=== PATIENT | male | born 1970 | race Caucasian/White ===

== ENCOUNTER → 2016-12-28 | Outpatient (CLI) | payer MEDICAID ==
[2016-01-08 13:35] VITALS: BP 166/81
[~2016-12-28] MED LIST: ALBU1.25 NEB; ASPI81TA2 PO; BUSP30TA PO; CLON0.2T PO; CLON1TAB3 PO; CYCL5TAB PO; LISI-334 PO; SERT100T PO; SPIR50TA2 PO; TRAM50TA PO; VERA240C2 PO
--- NOTE | 2016-12-28 12:20 | RAD ---
Chest, 2 views, 12/28/2016: History: Increasing shortness of breath Comparison is made to a study from 12/02/2010. The heart size and pulmonary vascularity are normal. There is a calcified granuloma in the left apex. No acute infiltrates are seen. There is no evidence of pleural fluid. Mild spurring is present in the spine. IMPRESSION: No acute cardiopulmonary abnormality is detected.
== END | disposition home or self-care (01) ==
LOC: RAD 11:17
PROVIDERS: ATTEND Internal Medicine Pulmonary Disease
DX: R06.02 Shortness of breath (principal)
CPT/HCPCS: 71020

== ENCOUNTER 2018-01-21 17:51 | Observation (INO) | payer OTHER, MEDICAID ==
[2018-01-21] MEDS: IPRATRPIUM/ALBUTEROL 0.5/2.5MG 3 ML NEBU. NEB (18:28)
[2018-01-21 18:34] LABS: ADD MAN DIFF? NO
[2018-01-21] MEDS: methylPREDNISolone SOD SUCC PF 125 MG/2 ML VIAL. IV (18:34)
[2018-01-21 18:40] LABS: BASO # 0.1 x10^3/uL (0.0-0.2); BASO % 1 % (0-3); EOS # 0.6 x10^3/uL (0.0-0.7); EOS % 6 % (0-3); HEMOGLOBIN 12.9 g/dL (13.0-17.5); LYMPH # 1.8 x10^3/uL (1.0-4.8); LYMPH % 19 % (24-48); MEAN CORPUSCULAR HEMOGLOBIN 28 pg (25-35); MEAN CORPUSCULAR HGB CONC 33 g/dL (31-37); MEAN CORPUSCULAR VOLUME 83 fL (79-100); MONO # 0.7 x10^3/uL (0.0-1.1); MONO % 7 % (0-9); NEUT # 6.4 x10^3uL (1.8-7.7); NEUT % 67 % (31-73); PLATELET COUNT 291 x10^3/uL (140-400); RED BLOOD COUNT 4.69 x10^6/uL (4.30-5.70); RED CELL DISTRIBUTION WIDTH 14.8 % (11.5-14.5); WHITE BLOOD COUNT 9.6 x10^3/uL (4.0-11.0)
[2018-01-21 18:40] LABS: TROPONIN BY ISTAT 0.01 ng/ml (<0.08)
[2018-01-21 18:49] LABS: PROTHROMBIN TIME PATIENT 12.7 SEC (11.7-14.0)
[2018-01-21 18:56] LABS: ANION GAP 8 (6-14); BLOOD UREA NITROGEN 19 mg/dL (8-26); BUN/CREATININE RATIO 19 (6-20); CALCIUM 9.3 mg/dL (8.5-10.1); CARBON DIOXIDE 27 mmol/L (21-32); CHLORIDE 103 mmol/L (98-107); GFR 80.8; GLUCOSE 103 mg/dL (70-99); POTASSIUM 4.2 mmol/L (3.5-5.1); SODIUM 138 mmol/L (136-145)
[2018-01-21 19:00] LABS: D-DIMER 0.41 ug/mlFEU (0.00-0.50)
[2018-01-21 19:03] LABS: ALBUMIN 3.6 g/dL (3.4-5.0); ALBUMIN/GLOBULIN RATIO 0.9 (1.0-1.7); ALK PHOS 82 U/L (46-116); ALT (SGPT) 32 U/L (16-63); AST (SGOT) 10 U/L (15-37); TOTAL BILIRUBIN 0.2 mg/dL (0.2-1.0); TOTAL PROTEIN 7.6 g/dL (6.4-8.2)
[2018-01-21 19:06] LABS: NT-PRO BNP 26 pg/mL (0-124)
[2018-01-21] MEDS ORDERED: NITROGLYCERIN SUBLINGUAL 0.4 MG BOTTLE OF 25. SL (20:30)
[2018-01-21] MEDS ORDERED: MORPHINE SULFATE 4 MG/ML DISP.SYRIN. IV (20:30)
[2018-01-21] MEDS ORDERED: ONDANSETRON PF 4 MG/2 ML VIAL. IV (20:30)
[2018-01-21] MEDS ORDERED: CETIRIZINE HCL 10 MG TABLET. PO (22:30)
[2018-01-21] MEDS: diphenhydrAMINE HCL 25 MG CAPSULE PO (23:23)
[2018-01-21] MEDS: busPIRone 10 MG TABLET. PO (23:24)
[2018-01-21] MEDS: VERAPAMIL 40 MG TABLET. PO (23:24)
[2018-01-21] MEDS: CYCLOBENZAPRINE 10 MG TABLET. PO (23:24)
[2018-01-21] MEDS: MONTELUKAST SODIUM 10 MG TABLET. PO (23:24)
[2018-01-21] MEDS: GABAPENTIN 400 MG CAPSULE. PO (23:25)
[2018-01-21] MEDS: clonazePAM 1 MG TABLET PO (23:25)
[2018-01-21] MEDS: CARVEDILOL 6.25 MG TABLET. PO (23:25)
[2018-01-21] MEDS: tiZANidine 4 MG TABLET. PO (23:25)
[2018-01-21] MEDS: IBUPROFEN 800 MG TABLET. PO (23:26)
[2018-01-21] MEDS: traMADol 50 MG TABLET PO (23:27)
[2018-01-21] MEDS ORDERED: CYCLOBENZAPRINE 10 MG TABLET. (23:30)
[2018-01-21] MEDS ORDERED: VERAPAMIL 40 MG TABLET. (23:30)
[2018-01-21] MEDS: ALBUTEROL SULFATE 2.5 MG/3 ML NEBU. NEB (23:44)
[2018-01-22 00:11] LABS: TROPONINI < 0.017 ng/mL (0.000-0.055)
[2018-01-22 03:34] LABS: BASO % 0 % (0-3); EOS % 0 % (0-3); HEMATOCRIT 39.7 % (39.0-53.0); HEMOGLOBIN 12.9 g/dL (13.0-17.5); LYMPH # 0.6 x10^3/uL (1.0-4.8); LYMPH % 7 % (24-48); MEAN CORPUSCULAR HEMOGLOBIN 27 pg (25-35); MEAN CORPUSCULAR HGB CONC 33 g/dL (31-37); MEAN CORPUSCULAR VOLUME 84 fL (79-100); MONO # 0.1 x10^3/uL (0.0-1.1); MONO % 1 % (0-9); NEUT # 7.4 x10^3uL (1.8-7.7); NEUT % 92 % (31-73); PLATELET COUNT 267 x10^3/uL (140-400); RED BLOOD COUNT 4.76 x10^6/uL (4.30-5.70); RED CELL DISTRIBUTION WIDTH 14.4 % (11.5-14.5); WHITE BLOOD COUNT 8.1 x10^3/uL (4.0-11.0)
[2018-01-22 03:39] LABS: ADD MAN DIFF? YES
[2018-01-22 03:58] LABS: ALBUMIN 3.5 g/dL (3.4-5.0); ALBUMIN/GLOBULIN RATIO 0.9 (1.0-1.7); ALK PHOS 86 U/L (46-116); ALT (SGPT) 29 U/L (16-63); ANION GAP 8 (6-14); AST (SGOT) 10 U/L (15-37); BLOOD UREA NITROGEN 21 mg/dL (8-26); BUN/CREATININE RATIO 18 (6-20); CALCIUM 9.4 mg/dL (8.5-10.1); CARBON DIOXIDE 25 mmol/L (21-32); CHLORIDE 103 mmol/L (98-107); CREATININE 1.2 mg/dL (0.7-1.3); GFR 65.5; GLUCOSE 148 mg/dL (70-99); POTASSIUM 4.6 mmol/L (3.5-5.1); SODIUM 136 mmol/L (136-145); TOTAL BILIRUBIN 0.3 mg/dL (0.2-1.0); TOTAL PROTEIN 7.6 g/dL (6.4-8.2)
[2018-01-22 04:02] LABS: TROPONINI < 0.017 ng/mL (0.000-0.055)
[2018-01-22 04:27] LABS: % BANDS 2 % (0-9); % LYMPHS 6 % (24-48); % SEGS 92 % (35-66); ANISOCYTOSIS SLIGHT; OVALOCYTES OCC; PLT ESTIMATE ADEQUATE (ADEQUATE)
[2018-01-22] MEDS: ALBUTEROL SULFATE 2.5 MG/3 ML NEBU. NEB ×4 (07:24→19:35)
[2018-01-22] MEDS: BUDESONIDE 0.5 MG/2 ML NEBU. NEB ×2 (07:24→19:35)
[2018-01-22] MEDS: DICLOFENAC SODIUM 1% TOPICAL GEL 100GM TUBE. TP ×4 (09:00→21:00)
[2018-01-22] MEDS ORDERED: NON FORMULARY ITEM (Tiotropium Bromide (Spiriva) 1 CAP) IH (09:00)
[2018-01-22] MEDS ORDERED: NON FORMULARY ITEM (Budesonide/Formoterol Fumarate (Symbicort 160-4.5 Mcg Inhaler) 2 PUFF) IH (09:00)
[2018-01-22] MEDS: traMADol 50 MG TABLET PO ×3 (10:04→21:17)
[2018-01-22] MEDS: clonazePAM 1 MG TABLET PO ×3 (10:05→21:16)
[2018-01-22] MEDS ORDERED: REGADENOSON 0.4 MG/5 ML DISP.SYRIN. IV (11:30)
[2018-01-22 11:45] LABS: CHOLESTEROL 124 mg/dL (0-200); HDLC 41 mg/dL (40-60); LDLC 75 mg/dL (0-100); NON-HDL CHOLESTEROL 83 mg/dL (0-129); TRIGLYCERIDES 38 mg/dL (0-150); VLDLC 8 mg/dL (0-40)
[2018-01-22 11:52] LABS: THYROID STIM HORMONE (TSH) 0.712 uIU/mL (0.358-3.74)
[2018-01-22] MEDS: SERTRALINE 50 MG TABLET. PO (12:39)
[2018-01-22] MEDS: cloNIDine HCL 0.2 MG TABLET PO ×2 (12:39→21:00)
[2018-01-22] MEDS: busPIRone 10 MG TABLET. PO ×3 (12:40→21:17)
[2018-01-22] MEDS: LISINOPRIL 20 MG TABLET PO (12:41)
[2018-01-22] MEDS: GABAPENTIN 400 MG CAPSULE. PO ×3 (12:42→21:16)
[2018-01-22] MEDS: CARVEDILOL 6.25 MG TABLET. PO ×2 (12:42→17:04)
[2018-01-22] MEDS: ATORVASTATIN CALCIUM 10 MG TABLET. PO (12:42)
[2018-01-22] MEDS: SPIRONOLACTONE 25 MG TABLET PO (12:43)
[2018-01-22] MEDS: CYCLOBENZAPRINE 10 MG TABLET. PO ×3 (12:44→21:16)
[2018-01-22] MEDS: VERAPAMIL 40 MG TABLET. PO ×3 (12:44→21:00)
[2018-01-22] MEDS: ASPIRIN 325 MG TABLET PO (12:45)
[2018-01-22] MEDS: FAMOTIDINE 20 MG TABLET. PO (12:45)
[2018-01-22] MEDS ORDERED: CYCLOBENZAPRINE 10 MG TABLET. (13:00)
[2018-01-22] MEDS ORDERED: VERAPAMIL 40 MG TABLET. (13:00)
[2018-01-22] MEDS: IBUPROFEN 800 MG TABLET. PO (15:05)
[2018-01-22] MEDS ORDERED: PERFLUTREN PROTEIN-A MICROSPHR 0.22 MG/ML 3 ML VIAL. IV (15:15)
[2018-01-22] MEDS ORDERED: [UNRECOGNIZED DRUG - OTHER] IV (15:15)
[2018-01-22] MEDS: methylPREDNISolone SOD SUCC PF 125 MG/2 ML VIAL. IV ×2 (17:05→21:16)
[2018-01-22] MEDS: NICOTINE POLACRILEX 2MG GUM PACKAGE of 12. BC ×2 (20:13→21:20)
[2018-01-22] MEDS: diphenhydrAMINE HCL 25 MG CAPSULE PO (21:16)
[2018-01-22] MEDS: MONTELUKAST SODIUM 10 MG TABLET. PO (21:16)
[2018-01-23] MEDS: traMADol 50 MG TABLET PO ×2 (07:13→14:27)
[2018-01-23] MEDS: IBUPROFEN 800 MG TABLET. PO (07:13)
[2018-01-23] MEDS: BUDESONIDE 0.5 MG/2 ML NEBU. NEB (07:17)
[2018-01-23] MEDS: ALBUTEROL SULFATE 2.5 MG/3 ML NEBU. NEB ×2 (07:17→11:17)
[2018-01-23] MEDS: FAMOTIDINE 20 MG TABLET. PO (08:06)
[2018-01-23] MEDS: clonazePAM 1 MG TABLET PO ×2 (08:06→12:15)
[2018-01-23] MEDS: CARVEDILOL 6.25 MG TABLET. PO (08:07)
[2018-01-23] MEDS: GABAPENTIN 400 MG CAPSULE. PO ×2 (08:07→14:27)
[2018-01-23] MEDS: SERTRALINE 50 MG TABLET. PO (08:07)
[2018-01-23] MEDS: CYCLOBENZAPRINE 10 MG TABLET. PO ×2 (08:07→14:27)
[2018-01-23] MEDS: ATORVASTATIN CALCIUM 10 MG TABLET. PO (08:07)
[2018-01-23] MEDS: busPIRone 10 MG TABLET. PO ×2 (08:08→14:27)
[2018-01-23] MEDS: ASPIRIN 325 MG TABLET PO (08:08)
[2018-01-23] MEDS: LISINOPRIL 20 MG TABLET PO (08:08)
[2018-01-23] MEDS: cloNIDine HCL 0.2 MG TABLET PO (08:08)
[2018-01-23] MEDS: SPIRONOLACTONE 25 MG TABLET PO (08:08)
[2018-01-23] MEDS: methylPREDNISolone SOD SUCC PF 125 MG/2 ML VIAL. IV (08:09)
[2018-01-23] MEDS: DICLOFENAC SODIUM 1% TOPICAL GEL 100GM TUBE. TP ×2 (08:09→13:00)
[2018-01-23] MEDS: NICOTINE POLACRILEX 2MG GUM PACKAGE of 12. BC (10:08)
[2018-01-23] MEDS: VERAPAMIL 40 MG TABLET. PO ×2 (10:08→14:28)
== END 2018-01-23 15:38 | disposition home or self-care (01) ==
LOC: ER 17:51 → 5 NORTH 20:28
DX: J44.1 Chronic obstructive pulmonary disease with (acute) exacerbation (principal); F32.9 Major depressive disorder, single episode, unspecified; I10 Essential (primary) hypertension; F17.210 Nicotine dependence, cigarettes, uncomplicated; E66.01 Morbid (severe) obesity due to excess calories; F41.0 Panic disorder [episodic paroxysmal anxiety]; I11.9 Hypertensive heart disease without heart failure; I51.7 Cardiomegaly; K21.9 Gastro-esophageal reflux disease without esophagitis; Z68.44 Body mass index [BMI] 60.0-69.9, adult; Z82.49 Family history of ischemic heart disease and other diseases of the circulatory system
CPT/HCPCS: 36415; 71046; 80053; 80061; 83880; 84443; 84484; 85007; 85025; 85379; 85610; 93005; 94640; 96372; 96374; 96376; 99285; C8929; G0378; G0379; J1650; J2930; J7613; J7620; J7626; Q0163; Q9956

== ENCOUNTER 2019-05-28 19:42 | Inpatient (IN) | payer OTHER ==
[~2019-05-28] VITALS: Ht 177.8 cm; Wt 219.0 kg
[~2019-05-28 19:42] MED LIST changes: +ASPI-630 PO; +ASPI325T8 PO; -ASPI81TA2 PO; +ATOR10TA60 PO; +BUDE10.2 IH; +CARV6.2511 PO; +CETI10TA22 PO; +CLIN150C14 PO; +CLON1TAB11 PO; -CLON1TAB3 PO; +DICL100G18 TP; +DIPH25CA58 PO; +FAMO40TA4 PO; +GABA800T5 PO; +IBUP-1060 PO; +MONT10TA49 PO; +PRED50TA PO; -SPIR50TA2 PO; +SPIR50TA4 PO; +TIOT18CA IH; +TIZA4CAP PO; +VERAP; +verapamil PO
[2019-05-28] MEDS ORDERED: VANCOMYCIN PER PHARMACY MC PRN (20:00)
[2019-05-28] MEDS ORDERED: FAMOTIDINE 20 MG/2 ML VIAL IVP ONE (20:00)
[2019-05-28] MEDS ORDERED: methylPREDNISolone SOD SUCC PF 125 MG/2 ML VIAL. IV ONE (20:00)
[2019-05-28 20:03] LABS: BASO % 1 % (0-3); EOS # 0.5 x10^3/uL (0.0-0.7); EOS % 7 % (0-3); HEMATOCRIT 39.2 % (39.0-53.0); HEMOGLOBIN 13.1 g/dL (13.0-17.5); LYMPH # 1.7 x10^3/uL (1.0-4.8); LYMPH % 23 % (24-48); MEAN CORPUSCULAR HEMOGLOBIN 29 pg (25-35); MEAN CORPUSCULAR HGB CONC 33 g/dL (31-37); MEAN CORPUSCULAR VOLUME 85 fL (79-100); MONO # 0.6 x10^3/uL (0.0-1.1); MONO % 8 % (0-9); NEUT # 4.5 x10^3/uL (1.8-7.7); NEUT % 61 % (31-73); PLATELET COUNT 250 x10^3/uL (140-400); RED BLOOD COUNT 4.59 x10^6/uL (4.30-5.70); RED CELL DISTRIBUTION WIDTH 14.6 % (11.5-14.5); WHITE BLOOD COUNT 7.3 x10^3/uL (4.0-11.0)
--- NOTE | 2019-05-28 20:10 | PHYS DOC ---
Past Medical History Past Medical History: Anxiety, Arthritis, Asthma, COPD, Depression, High Cholesterol, Hypertension Additional Past Medical Histor: Tachycardia, panic disorder, morbid obesity, DDD Past Surgical History: No Surgical History Alcohol Use: None Drug Use: None Adult General Chief Complaint Chief Complaint: CHEST PAIN HPI HPI Patient is a 48 year old male with history of asthma who presents with multiple medical complaints. Patient completed a ten-day course of clindamycin yesterday for treatment of cellulitis of left lower extremity. Patient was seen in the emergency department 11 days ago for the same. He states he completed the course of clindamycin and that his skin rash had platelet 1 away. However, yesterday the rash began yesterday and has now now spread from the ankle to the calf. Patient also reports shortness of breath and chest tightness increase peripheral edema, left greater than right. Also reports increased fluid States yesterday the symptoms began around the same time he broke out in an urticarial type rash that is concentrated on his neck, and torso. Patient took Benadryl for itching with some improvement, but the hives have persisted. Denies known medication allergies. For shortness of breath with exertion. Denies fever, chills. Does report fatigue and generalized malaise. No nausea vomiting. Patient is diaphoretic but states that he is often diaphoretic due to body habitus. [] Review of Systems Review of Systems Review symptoms as per history of present illness. All other review symptoms are negative. All other systems were reviewed and found to be within normal limits, except as documented in this note. Current Medications Current Medications Current Medications Medications (Trade) Dose Ordered Sig/Silke Start Time Stop Time Status Last Admin Dose Admin Famotidine (Pepcid Vial) 20 mg 1X ONCE 05/28/19 20:00 05/28/19 20:02 DC 05/28/19 20:18 20 MG Methylprednisolone Sodium Succinate (SOLU-Medrol 125MG VIAL) 125 mg 1X ONCE 05/28/19 20:00 05/28/19 20:02 DC 05/28/19 20:18 125 MG Vancomycin HCl (Vanco Per Pharmacy) 1 each PRN DAILY PRN 05/28/19 20:00 UNV Vancomycin HCl 2 gm/Sodium Chloride 500 ml @ 250 mls/hr 1X ONCE 05/28/19 20:30 05/28/19 22:29 05/28/19 20:18 250 MLS/HR Allergies Allergies Allergies Coded Allergies Type Severity Reaction Last Updated Verified Sulfa (Sulfonamide Antibiotics) Allergy Intermediate Itching 01/08/16 Yes codeine Allergy Intermediate Itching 01/08/16 Yes morphine Allergy Intermediate Itching 01/08/16 Yes Physical Exam Physical Exam Constitutional: Well developed, well nourished, no acute distress, uncomfortable appearing. [] HENT: Normocephalic, atraumatic, bilateral external ears normal, oropharynx moist, no oral exudates, nose normal. [] Eyes: PERRLA, EOMI, conjunctiva normal, no discharge. [] Neck: Normal range of motion, no tenderness, supple, no stridor. [] Cardiovascular:Heart rate regular rhythm, no murmur [] Lungs & Thorax: Bilateral breath sounds clear to auscultation [] Abdomen: Bowel sounds normal, soft, no tenderness, obesity compromising exam. [] Skin: Diaphoretic with aculopapular/urticarial rash concentrated around neck and torso. Rash blanches's nontender. [] Back: No tenderness, no CVA tenderness. [] Extremities: Cellulitis and swelling of left lower extremity extending from foot to proximal leg with aching noted. [] Neurologic: Alert and oriented X 3, normal motor function, normal sensory function, no focal deficits noted. [] Psychologic: Affect normal, judgement normal, mood normal. [] Current Patient Data Vital Signs Vital Signs Date Time Temp Pulse Resp B/P (MAP) Pulse Ox O2 Delivery O2 Flow Rate FiO2 05/28/19 20:27 73 19 113/59 (77) 95 Room Air 05/28/19 19:45 97.6 97.6 Lab Values Laboratory Tests Test 05/28/19 19:50 White Blood Count 7.3 x10^3/uL (4.0-11.0) Red Blood Count 4.59 x10^6/uL (4.30-5.70) Hemoglobin 13.1 g/dL (13.0-17.5) Hematocrit 39.2 % (39.0-53.0) Mean Corpuscular Volume 85 fL (79-100) Mean Corpuscular Hemoglobin 29 pg (25-35) Mean Corpuscular Hemoglobin Concent 33 g/dL (31-37) Red Cell Distribution Width 14.6 % (11.5-14.5) H Platelet Count 250 x10^3/uL (140-400) Neutrophils (%) (Auto) 61 % (31-73) Lymphocytes (%) (Auto) 23 % (24-48) L Monocytes (%) (Auto) 8 % (0-9) Eosinophils (%) (Auto) 7 % (0-3) H Basophils (%) (Auto) 1 % (0-3) Neutrophils # (Auto) 4.5 x10^3/uL (1.8-7.7) Lymphocytes # (Auto) 1.7 x10^3/uL (1.0-4.8) Monocytes # (Auto) 0.6 x10^3/uL (0.0-1.1) Eosinophils # (Auto) 0.5 x10^3/uL (0.0-0.7) Basophils # (Auto) 0.0 x10^3/uL (0.0-0.2) D-Dimer (Tia) 0.83 ug/mlFEU (0.00-0.50) H Sodium Level 138 mmol/L (136-145) Potassium Level 4.6 mmol/L (3.5-5.1) Chloride Level 102 mmol/L (98-107) Carbon Dioxide Level 27 mmol/L (21-32) Anion Gap 9 (6-14) Blood Urea Nitrogen 17 mg/dL (8-26) Creatinine 1.1 mg/dL (0.7-1.3) Estimated GFR (Cockcroft-Gault) 72.1 BUN/Creatinine Ratio 15 (6-20) Glucose Level 88 mg/dL (70-99) Lactic Acid Level 1.0 mmol/L (0.4-2.0) Calcium Level 9.4 mg/dL (8.5-10.1) Total Bilirubin 0.3 mg/dL (0.2-1.0) Aspartate Amino Transferase (AST) 15 U/L (15-37) Alanine Aminotransferase (ALT) 42 U/L (16-63) Alkaline Phosphatase 83 U/L (46-116) Troponin I Quantitative < 0.017 ng/mL (0.000-0.055) C-Reactive Protein, Quantitative 9.3 mg/L (0-3.3) H PL-Xxh-[id number]-Type Natriuretic Peptide 34 pg/mL (0-124) Total Protein 7.7 g/dL (6.4-8.2) Albumin 3.8 g/dL (3.4-5.0) Albumin/Globulin Ratio 1.0 (1.0-1.7) Laboratory Tests 05/28/19 19:50 Laboratory Tests 05/28/19 19:50 EKG EKG [EKG: reviewed] Radiology/Procedures Radiology/Procedures [CXR: NAD] Course & Med Decision Making Course & Med Decision Making Pertinent Labs and Imaging studies reviewed. (See chart for details) [Recurrent cellulitis after recently discontinuing clindamycin. Patient afebrile with stable vital signs. Patient also short of breath with expiratory and inspiratory wheezes and urticarial rash, presumably from recent antibiotics, steroids, Pepcid and eating treatment given with improvement. Will admit to the hospitalist service. ] Dragon Disclaimer Dragon Disclaimer This electronic medical record was generated, in whole or in part, using a voice recognition dictation system. Departure Departure Impression: Primary Impression: Cellulitis Additional Impressions: Allergic reaction Asthma exacerbation Disposition: ADMITTED INPATIENT Condition: IMPROVED Referrals: NON,STAFF (PCP) Problem Qualifiers NIKITA WALKER DO May 28, 2019 20:10
[2019-05-28 20:13] LABS: CALCIUM 9.4 mg/dL (8.5-10.1); CREATININE 1.1 mg/dL (0.7-1.3); GFR 72.1; POTASSIUM 4.6 mmol/L (3.5-5.1)
[2019-05-28 20:21] LABS: ALBUMIN 3.8 g/dL (3.4-5.0); TOTAL BILIRUBIN 0.3 mg/dL (0.2-1.0); TOTAL PROTEIN 7.7 g/dL (6.4-8.2)
[2019-05-28] MEDS ORDERED: VANCOMYCIN 2 GM in IV NORMAL SALINE 500ML BAG 500 ML IV ONE (20:30)
[2019-05-28] MEDS ORDERED: CONTRAST GIVEN. MC PRN (20:45)
[2019-05-28] MEDS ORDERED: IOHEXOL 350 MG/ML 100 ML VIAL. IV ONE (20:45)
--- NOTE | 2019-05-28 20:55 | NUR ---
Pharmacy Vancomycin Dosing Note S:Consulted to monitor and dose vancomycin started 05/28/19. O:KIKI ROBLEDO is a 48 year old M with Cellulitis . Height: 5 feet, 10 inches Weight: 219 kg [place] Body Weight: 84.50 Adjusted Body Weight: 138.30 Dosing Weight: Actual Other Antibiotics: - LABS: Last BUN: 17 Last Creatinine: 1.1 Creatinine Clearance: >100 mL/min Last WBC: 7.3 Last Procalcitonin: Tmax (past 24 hours): 97.6 Microbiology: - I/O: - Last dose given 05/28/19 at 2014 Vancomycin Dosing: Loading Dose: 2000 mg x1 Dosing Weight: Actual Target Trough: 10-20 A: Based on: weight and renal function P: 1. Begin Vancomycin 2000 mg IV q12h 2. Follow up Trough level on 05/30/19 at 0830 3. Pharmacy will continue to monitor, follow and adjust therapy as needed. Deboarh Madrid Moi, 05/28/19 1819
[2019-05-28] MEDS ORDERED: FAMOTIDINE 20 MG/2 ML VIAL IVP SCH (21:00)
[2019-05-28] MEDS ORDERED: ONDANSETRON PF 4 MG/2 ML VIAL. IV PRN (21:00)
[2019-05-28] MEDS ORDERED: IPRATRPIUM/ALBUTEROL 0.5/2.5MG 3 ML NEBU. NEB ONE (21:30)
[2019-05-28 23:00] VITALS: BP 103/43
[2019-05-28] MEDS ORDERED: CYCL10TA2 PO (23:30)
[2019-05-28] MEDS ORDERED: TIZA4TAB2 PO (23:30)
[2019-05-28] MEDS ORDERED: CETI10TA16 PO (23:30)
[2019-05-28] MEDS ORDERED: TRAM50TA PO (23:30)
[2019-05-28] MEDS ORDERED: diphenhydrAMINE HCL 25 MG CAPSULE PO ONE (23:30)
[2019-05-28] MEDS ORDERED: SERT100T PO (23:30)
[2019-05-28] MEDS ORDERED: CLON1TAB11 PO ×2 (23:30)
[2019-05-28] MEDS ORDERED: ALBUTEROL SULFATE 2.5 MG/3 ML NEBU. NEB PRN (23:45)
[2019-05-29] MEDS: IBUPROFEN 400 MG TABLET. PO PRN ×2 (00:20→21:00)
[2019-05-29] MEDS: traMADol 50 MG TABLET PO PRN ×2 (00:20→17:40)
[2019-05-29 03:00] VITALS: BP 103/49
--- NOTE | 2019-05-29 04:19 | RAD ---
Single view chest dated 05/28/2019. Comparison made to 01/21/2018. CLINICAL INDICATION: Chest pain. FINDINGS: Single upright portable exam performed. Heart and mediastinal contours are stable. Lungs are clear. No consolidation or pleural effusion. No pneumothorax. Calcified granuloma left apex, unchanged. IMPRESSION: No acute radiographic abnormality. Electronically signed by: Jah Buitrago MD (05/29/2019 4:16 AM) [facility]
[2019-05-29 04:52] LABS: BASO % 0 % (0-3); EOS % 0 % (0-3); HEMATOCRIT 36.4 % (39.0-53.0); HEMOGLOBIN 12.6 g/dL (13.0-17.5); LYMPH # 0.5 x10^3/uL (1.0-4.8); LYMPH % 8 % (24-48); MEAN CORPUSCULAR HEMOGLOBIN 29 pg (25-35); MEAN CORPUSCULAR HGB CONC 35 g/dL (31-37); MEAN CORPUSCULAR VOLUME 85 fL (79-100); MONO # 0.1 x10^3/uL (0.0-1.1); MONO % 1 % (0-9); NEUT # 5.5 x10^3/uL (1.8-7.7); NEUT % 91 % (31-73); PLATELET COUNT 209 x10^3/uL (140-400); RED BLOOD COUNT 4.28 x10^6/uL (4.30-5.70); WHITE BLOOD COUNT 6.1 x10^3/uL (4.0-11.0)
[2019-05-29 05:06] LABS: ALBUMIN 3.5 g/dL (3.4-5.0); ALBUMIN/GLOBULIN RATIO 0.9 (1.0-1.7); CALCIUM 9.2 mg/dL (8.5-10.1); CREATININE 1.3 mg/dL (0.7-1.3); GFR 59.4; TOTAL BILIRUBIN 0.2 mg/dL (0.2-1.0); TOTAL PROTEIN 7.2 g/dL (6.4-8.2)
[2019-05-29] MEDS: methylPREDNISolone SOD SUCC PF 125 MG/2 ML VIAL. IV SCH ×3 (05:31→17:38)
--- NOTE | 2019-05-29 05:56 | EKG ---
[facility] [address] [place] [address] Test Date: 2019-05-28 Test Time: 19:50:23 Pat Name: KIKI ROBLEDO Department: Room: Gender: M [employer]: : 1970 Requested By: NIKITA WALKER Order Number: [id number] Reading MD: Measurements Intervals [place] Rate: 79 P: 59 NV: 200 QRS: 99 QRSD: 90 T: 51 QT: 350 QTc: 406 Interpretive Statements SINUS RHYTHM RIGHTWARD AXIS OTHERWISE NORMAL ECG No previous ECG available for comparison
[2019-05-29 07:00] VITALS: BP 124/64
[2019-05-29] MEDS: IPRATRPIUM/ALBUTEROL 0.5/2.5MG 3 ML NEBU. NEB SCH ×4 (07:29→19:15)
[2019-05-29] MEDS: BUDESONIDE 0.5 MG/2 ML NEBU. NEB SCH ×2 (07:29→19:15)
[2019-05-29] MEDS ORDERED: IPRATRPIUM/ALBUTEROL 0.5/2.5MG 3 ML NEBU. NEB SCH (08:00)
--- NOTE | 2019-05-29 08:00 | RAD ---
EXAM: CT chest with contrast - pulmonary embolus protocol CLINICAL HISTORY: Shortness of air, positive d-dimer. COMPARISON: None. TECHNIQUE: CT of the chest following the administration of intravenous contrast during the pulmonary arterial phase. Axial, coronal and sagittal reformatted images were generated including MIP images. ---PQRS compliance statement - One or more of the following individualized dose reduction techniques were utilized for this study: 1. Automated exposure control 2. Adjustment of the mA and/or kV according to patient size 3. Use of iterative reconstruction technique--- FINDINGS: CHEST: Diagnostic quality: Suboptimal. Pulmonary emboli: No large central pulmonary emboli seen. The pulmonary artery branches are not adequately assessed. Right heart strain: None Pulmonary arteries: Normal in caliber. No pleural effusion or pneumothorax. Calcified granuloma are seen bilaterally. Heart is not enlarged. No mediastinal or hilar lymphadenopathy. Calcified right hilar lymph node is seen. No axillary lymphadenopathy. Bilateral gynecomastia. Visualized Upper abdomen: Upper abdomen is grossly unremarkable. Bones: Degenerative changes in spine are seen. IMPRESSION: 1. Within the constraints of suboptimal contrast bolus, no central pulmonary embolus is seen. The pulmonary arterial branches are not adequately assessed. 2. Bilateral calcified granuloma and calcified lymph node may be seen with prior granulomatous disease. 3. Bilateral gynecomastia. Electronically signed by: Micheal Rahman MD (05/29/2019 7:57 AM) [facility]
[2019-05-29 08:05] LABS: % BANDS 5 % (0-9); % LYMPHS 2 % (24-48); % SEGS 93 % (35-66); PLT ESTIMATE ADEQUATE (ADEQUATE)
[2019-05-29] MEDS: SPIRONOLACTONE 25 MG TABLET PO SCH (08:44)
[2019-05-29] MEDS: busPIRone 10 MG TABLET. PO SCH ×3 (08:45→20:54)
[2019-05-29] MEDS: SERTRALINE 50 MG TABLET. PO SCH (08:45)
[2019-05-29] MEDS: tiZANidine 4 MG TABLET. PO SCH ×3 (08:46→20:55)
[2019-05-29] MEDS: GABAPENTIN 400 MG CAPSULE. PO SCH ×3 (08:46→20:54)
[2019-05-29] MEDS: CETIRIZINE HCL 10 MG TABLET. PO SCH (08:46)
[2019-05-29] MEDS: FAMOTIDINE 20 MG TABLET. PO SCH (08:46)
[2019-05-29] MEDS: VERAPAMIL 40 MG TABLET. PO SCH ×3 (08:46→20:55)
[2019-05-29] MEDS: cloNIDine HCL 0.2 MG TABLET PO SCH ×2 (08:46→20:55)
[2019-05-29] MEDS: ASPIRIN 325 MG TABLET PO SCH (08:46)
[2019-05-29] MEDS: LISINOPRIL 20 MG TABLET PO SCH (08:47)
[2019-05-29] MEDS: CARVEDILOL 6.25 MG TABLET. PO SCH ×2 (08:48→17:38)
--- NOTE | 2019-05-29 08:51 | PDOC1 ---
History and Physical Date of Admission Date of Admission DATE: 05/29/19 TIME: 08:50 Source Source: Chart review, Patient History of Present Illness History of Present Illness Patient is a 48 year old male with history of asthma who presents with multiple medical complaints. Patient completed a ten-day course of clindamycin yesterday for treatment of cellulitis of left lower extremity. Patient was seen in the emergency department 11 days ago for the same. He states he completed the course of clindamycin and that his skin rash had platelet 1 away. However, yesterday the rash began yesterday and has now now spread from the ankle to the calf. Patient also reports shortness of breath and chest tightness increase peripheral edema, left greater than right. Also reports increased fluid States yesterday the symptoms began around the same time he broke out in an urticarial type rash that is concentrated on his neck, and torso. Patient took Benadryl for itching with some improvement, but the hives have persisted. Denies known medication allergies. For shortness of breath with exertion. Denies fever, chills. Does report fatigue and generalized malaise. No nausea vomiting. Patient is diaphoretic but states that he is often diaphoretic due to body habitus. [] Past Medical History Cardiovascular: HTN, Other Pulmonary: Asthma, COPD CENTRAL NERVOUS SYSTEM: Other GI: GERD Heme/Onc: No pertinent hx Hepatobiliary: Other Psych: No pertinent hx Musculoskeletal: Osteoarthritis, Other Rheumatologic: No pertinent hx Infectious disease: No pertinent hx Renal/: Other Endocrine: No pertinent hx Past Surgical History Past Surgical History: No pertinent history Family History Family History: Heart Disease Social History Smoke: 1 pack per day ALCOHOL: none Current Problem List Problem List Problems Medical Problems: (1) Allergic reaction Status: Acute (2) Asthma exacerbation Status: Acute (3) Cellulitis Status: Acute Current Medications Current Medications Current Medications Methylprednisolone Sodium Succinate (SOLU-Medrol 125MG VIAL) 125 mg 1X ONCE IV Last administered on 05/28/19at 20:18; Start 05/28/19 at 20:00; Stop 05/28/19 at 20:02; Status DC Famotidine (Pepcid Vial) 20 mg 1X ONCE IVP Last administered on 05/28/19at 20:18; Start 05/28/19 at 20:00; Stop 05/28/19 at 20:02; Status DC Vancomycin HCl (Vanco Per Pharmacy) 1 each PRN DAILY PRN MC SEE COMMENTS Last administered on 05/28/19at 20:55; Start 05/28/19 at 20:00 Vancomycin HCl 2 gm/Sodium Chloride 500 ml @ 250 mls/hr 1X ONCE IV Last administered on 05/28/19at 20:18; Start 05/28/19 at 20:30; Stop 05/28/19 at 22:29; Status DC Iohexol (Omnipaque 350 Mg/ml) 100 ml 1X ONCE IV Last administered on 05/28/19at 21:05; Start 05/28/19 at 20:45; Stop 05/28/19 at 20:46; Status DC Info (CONTRAST GIVEN -- Rx MONITORING) 1 each PRN DAILY PRN MC SEE COMMENTS; Start 05/28/19 at 20:45; Stop 05/30/19 at 20:44 Ondansetron HCl (Zofran) 4 mg PRN Q8HRS PRN IV NAUSEA/VOMITING; Start 05/28/19 at 21:00; Stop 05/29/19 at 20:59 Albuterol/ Ipratropium (Duoneb) 3 ml RTQID NEB ; Start 05/29/19 at 08:00; Stop 05/28/19 at 23:46; Status DC Methylprednisolone Sodium Succinate (SOLU-Medrol 125MG VIAL) 62.5 mg Q6HRS IV Last administered on 05/29/19at 05:31; Start 05/29/19 at 06:00 Famotidine (Pepcid Vial) 20 mg Q12HR IVP ; Start 05/28/19 at 21:00; Status Cancel Famotidine (Pepcid Vial) 20 mg Q12HR IVP ; Start 05/29/19 at 09:00; Stop 05/28/19 at 23:53; Status DC Vancomycin HCl 2 gm/Sodium Chloride 500 ml @ 250 mls/hr Q12H IV ; Start 05/29/19 at 09:00 Vancomycin HCl (Vancomycin Trough Level) 1 each 1X ONCE MC ; Start 05/30/19 at 08:30; Stop 05/30/19 at 08:31 Albuterol/ Ipratropium (Duoneb) 3 ml 1X ONCE NEB Last administered on 05/28/19at 21:49; Start 05/28/19 at 21:30; Stop 05/28/19 at 21:31; Status DC Diphenhydramine HCl (Benadryl) 25 mg 1X ONCE PO Last administered on 05/29/19 00:16; Start 05/28/19 at 23:30; Stop 05/28/19 at 23:31; Status DC Aspirin (Sumit Aspirin) 325 mg DAILY PO Last administered on 05/29/19 08:48; Start 05/29/19 at 09:00 Atorvastatin Calcium (Lipitor) 10 mg QHS PO ; Start 05/29/19 at 21:00 Carvedilol (Coreg) 6.25 mg BIDWMEALS PO Last administered on 05/29/19 08:48; Start 05/29/19 at 08:00 Cetirizine HCl (ZyrTEC) 10 mg DAILY PO Last administered on 05/29/19 08:48; Start 05/29/19 at 09:00 Clonazepam (KlonoPIN) 1 mg NOON PO ; Start 05/29/19 at 12:00 Clonazepam (KlonoPIN) 2 mg BID PO ; Start 05/29/19 at 09:00 Clonidine HCl (Catapres) 0.2 mg BID PO Last administered on 05/29/19 08:48; Start 05/29/19 at 09:00 Cyclobenzaprine HCl (Flexeril) 10 mg QHS PO ; Start 05/29/19 at 21:00 Diclofenac Sodium (Voltaren) 1 saul QID TP ; Start 05/29/19 at 09:00 Lisinopril (Prinivil) 40 mg DAILY PO Last administered on 05/29/19 08:48; Start 05/29/19 at 09:00 Montelukast Sodium (Singulair) 10 mg HS PO ; Start 05/29/19 at 21:00 Tizanidine HCl (Zanaflex) 4 mg TID PO Last administered on 05/29/19 08:48; Start 05/29/19 at 09:00 Tramadol HCl (Ultram) 100 mg PRN TID PRN PO MODERATE PAIN 4-6 Last administered on 05/29/19at 00:20; Start 05/28/19 at 23:45 Albuterol Sulfate (Ventolin Neb Soln) 1.25 mg PRN Q4HRS PRN NEB SHORTNESS OF BREATH; Start 05/28/19 at 23:45 Budesonide (Pulmicort) 0.5 mg RTBID NEB Last administered on 05/29/19 07:29; Start 05/29/19 at 08:00 Buspirone HCl (Buspar) 30 mg TID PO Last administered on 05/29/19 08:48; Start 05/29/19 at 09:00 Famotidine (Pepcid) 40 mg DAILY PO Last administered on 05/29/19 08:48; Start 05/29/19 at 09:00 Gabapentin (Neurontin) 800 mg TID PO Last administered on 05/29/19 08:48; Start 05/29/19 at 09:00 Ibuprofen (Motrin) 800 mg PRN TID PRN PO INFLAMMATION Last administered on 05/29/19 00:20; Start 05/28/19 at 23:45 Sertraline HCl (Zoloft) 300 mg DAILY PO Last administered on 05/29/19 08:48; Start 05/29/19 at 09:00 Spironolactone (Aldactone) 100 mg DAILY PO Last administered on 05/29/19 08:48; Start 05/29/19 at 09:00 Albuterol/ Ipratropium (Duoneb) 3 ml RTQID NEB Last administered on 05/29/19 07:29; Start 05/29/19 at 08:00 Verapamil HCl (Calan) 120 mg TID PO Last administered on 05/29/19 08:48; Start 05/29/19 at 09:00 Active Scripts Active Reported Tramadol Hcl 50 Mg Tablet 100 Mg PO TID PRN Clonazepam 1 Mg Tablet 1 Mg PO NOON Clonazepam 1 Mg Tablet 2 Tab PO BID Zoloft (Sertraline Hcl) 100 Mg Tablet 3 Tab PO DAILY Cyclobenzaprine Hcl 10 Mg Tablet 1 Tab PO QHS Tizanidine Hcl 4 Mg Tablet 1 Tab PO TID Cetirizine Hcl 10 Mg Tablet 10 Mg PO DAILY [verapamil] 120 Mg PO TID Voltaren (Diclofenac Sodium) 100 Gm Gel..gram. 1 Gm TP QID Gabapentin 800 Mg Tablet 800 Mg PO TID Carvedilol (Carvedilol) 6.25 Mg Tablet 1 Tab PO BID Atorvastatin Calcium 10 Mg Tablet 1 Tab PO DAILY Ibuprofen 800 Mg Tablet 800 Mg PO TID PRN Famotidine 40 Mg Tablet 40 Mg PO DAILY Montelukast Sodium Tablet (Montelukast Sodium) 10 Mg Tablet 10 Mg PO HS Symbicort 160-4.5 Mcg Inhaler (Budesonide/Formoterol Fumarate) 10.2 Gm Hfa.aer.ad 2 Puff IH BID Spiriva (Tiotropium Oakley) 18 Mcg Cap.w.dev 1 Cap IH DAILY Aspirin 325 Mg Tablet 1 Tab PO DAILY Buspirone Hcl 30 Mg Tablet 1 Tab PO TID Albuterol Sulfate Neb Soln (Albuterol Sulfate) 1.25 Mg/3 Ml Vial.neb 1.25 Mg NEB Q4HRS PRN Spironolactone 50 Mg Tablet 2 Tab PO DAILY Lisinopril 20 Mg Tablet 2 Tab PO DAILY Clonidine Hcl 0.2 Mg Tablet 1 Tab PO BID Allergies Allergies: Coded Allergies: Sulfa (Sulfonamide Antibiotics) (Verified Allergy, Intermediate, Itching, 01/08/16) codeine (Verified Allergy, Intermediate, Itching, 01/08/16) morphine (Verified Allergy, Intermediate, Itching, 01/08/16) ROS General: YES: Chills, Fatigue PSYCHOLOGICAL ROS: YES: Irritablity HEENT: No: Heacaches, Visual Changes, Hearing change, Nasal congestion, Nasal discharge, Oral lesions, Sinus pain, Sore Throat, Epistaxis, Sneezing, Snoring, Tinnitus, Vertigo, Vocal changes, Other Respiratory: No: Cough, Hemoptysis, Orthopnea, Pleuritic Pain, Shortness of breath, SOB with excertion, Sputum Changes, Stridor, Tachypnea, Wheezing, Other Cardiovascular: No Chest Pain, No Palpitations, No Orthopnea, No Paroxysmal Noc. Dyspnea, No Edema, No Lt Headedness, No Other Gastrointestinal: Yes Nausea; No Vomiting, No Abdominal Pain, No Diarrhea, No Constipation, No Melena, No Hematochezia, No Other Musculoskeletal: Yes Gait Disturbance, Yes Joint Pain, Yes Joint Stiffness Neurological: Yes Gait Disturbance Skin: Yes Dry Skin, Yes Mottling, Yes Rash, Yes Skin Lesion Changes Physical Exam General: Alert, Cooperative, mild distress, moderate distress HEENT: PERRLA Lungs: Clear to auscultation Heart: S1S2, no murmurs Extremities: Normal pulses, Other (poor toenail care, fungus) Skin: Other (rash, cellulitis, ) Neuro: Normal speech, Sensation intact Psych/Mental Status: Mental status NL, Mood NL Vitals Vitals Vital Signs Date Time Temp Pulse Resp B/P (MAP) Pulse Ox O2 Delivery O2 Flow Rate FiO2 05/29/19 08:48 89 124/64 05/29/19 07:31 94 Room Air 05/29/19 07:00 97.6 16 97.6 Labs Labs Laboratory Tests Test 05/28/19 19:50 05/29/19 04:23 White Blood Count 7.3 x10^3/uL (4.0-11.0) 6.1 x10^3/uL (4.0-11.0) Red Blood Count 4.59 x10^6/uL (4.30-5.70) 4.28 x10^6/uL (4.30-5.70) Hemoglobin 13.1 g/dL (13.0-17.5) 12.6 g/dL (13.0-17.5) Hematocrit 39.2 % (39.0-53.0) 36.4 % (39.0-53.0) Mean Corpuscular Volume 85 fL (79-100) 85 fL (79-100) Mean Corpuscular Hemoglobin 29 pg (25-35) 29 pg (25-35) Mean Corpuscular Hemoglobin Concent 33 g/dL (31-37) 35 g/dL (31-37) Red Cell Distribution Width 14.6 % (11.5-14.5) 14.0 % (11.5-14.5) Platelet Count 250 x10^3/uL (140-400) 209 x10^3/uL (140-400) Neutrophils (%) (Auto) 61 % (31-73) 91 % (31-73) Lymphocytes (%) (Auto) 23 % (24-48) 8 % (24-48) Monocytes (%) (Auto) 8 % (0-9) 1 % (0-9) Eosinophils (%) (Auto) 7 % (0-3) 0 % (0-3) Basophils (%) (Auto) 1 % (0-3) 0 % (0-3) Neutrophils # (Auto) 4.5 x10^3/uL (1.8-7.7) 5.5 x10^3/uL (1.8-7.7) Lymphocytes # (Auto) 1.7 x10^3/uL (1.0-4.8) 0.5 x10^3/uL (1.0-4.8) Monocytes # (Auto) 0.6 x10^3/uL (0.0-1.1) 0.1 x10^3/uL (0.0-1.1) Eosinophils # (Auto) 0.5 x10^3/uL (0.0-0.7) 0.0 x10^3/uL (0.0-0.7) Basophils # (Auto) 0.0 x10^3/uL (0.0-0.2) 0.0 x10^3/uL (0.0-0.2) D-Dimer (Tia) 0.83 ug/mlFEU (0.00-0.50) Sodium Level 138 mmol/L (136-145) 137 mmol/L (136-145) Potassium Level 4.6 mmol/L (3.5-5.1) 5.0 mmol/L (3.5-5.1) Chloride Level 102 mmol/L (98-107) 103 mmol/L (98-107) Carbon Dioxide Level 27 mmol/L (21-32) 26 mmol/L (21-32) Anion Gap 9 (6-14) 8 (6-14) Blood Urea Nitrogen 17 mg/dL (8-26) 18 mg/dL (8-26) Creatinine 1.1 mg/dL (0.7-1.3) 1.3 mg/dL (0.7-1.3) Estimated GFR (Cockcroft-Gault) 72.1 59.4 BUN/Creatinine Ratio 15 (6-20) 14 (6-20) Glucose Level 88 mg/dL (70-99) 149 mg/dL (70-99) Lactic Acid Level 1.0 mmol/L (0.4-2.0) Calcium Level 9.4 mg/dL (8.5-10.1) 9.2 mg/dL (8.5-10.1) Total Bilirubin 0.3 mg/dL (0.2-1.0) 0.2 mg/dL (0.2-1.0) Aspartate Amino Transf (AST/SGOT) 15 U/L (15-37) 13 U/L (15-37) Alanine Aminotransferase (ALT/SGPT) 42 U/L (16-63) 35 U/L (16-63) Alkaline Phosphatase 83 U/L (46-116) 79 U/L (46-116) Troponin I Quantitative < 0.017 ng/mL (0.000-0.055) C-Reactive Protein, Quantitative 9.3 mg/L (0-3.3) ZT-Joy-R-Type Natriuretic Peptide 34 pg/mL (0-124) Total Protein 7.7 g/dL (6.4-8.2) 7.2 g/dL (6.4-8.2) Albumin 3.8 g/dL (3.4-5.0) 3.5 g/dL (3.4-5.0) Albumin/Globulin Ratio 1.0 (1.0-1.7) 0.9 (1.0-1.7) Segmented Neutrophils % 93 % (35-66) Band Neutrophils % 5 % (0-9) Lymphocytes % 2 % (24-48) Platelet Estimate Adequate (ADEQUATE) Laboratory Tests Test 05/28/19 19:50 05/29/19 04:23 White Blood Count 7.3 x10^3/uL (4.0-11.0) 6.1 x10^3/uL (4.0-11.0) Red Blood Count 4.59 x10^6/uL (4.30-5.70) 4.28 x10^6/uL (4.30-5.70) Hemoglobin 13.1 g/dL (13.0-17.5) 12.6 g/dL (13.0-17.5) Hematocrit 39.2 % (39.0-53.0) 36.4 % (39.0-53.0) Mean Corpuscular Volume 85 fL (79-100) 85 fL (79-100) Mean Corpuscular Hemoglobin 29 pg (25-35) 29 pg (25-35) Mean Corpuscular Hemoglobin Concent 33 g/dL (31-37) 35 g/dL (31-37) Red Cell Distribution Width 14.6 % (11.5-14.5) 14.0 % (11.5-14.5) Platelet Count 250 x10^3/uL (140-400) 209 x10^3/uL (140-400) Neutrophils (%) (Auto) 61 % (31-73) 91 % (31-73) Lymphocytes (%) (Auto) 23 % (24-48) 8 % (24-48) Monocytes (%) (Auto) 8 % (0-9) 1 % (0-9) Eosinophils (%) (Auto) 7 % (0-3) 0 % (0-3) Basophils (%) (Auto) 1 % (0-3) 0 % (0-3) Neutrophils # (Auto) 4.5 x10^3/uL (1.8-7.7) 5.5 x10^3/uL (1.8-7.7) Lymphocytes # (Auto) 1.7 x10^3/uL (1.0-4.8) 0.5 x10^3/uL (1.0-4.8) Monocytes # (Auto) 0.6 x10^3/uL (0.0-1.1) 0.1 x10^3/uL (0.0-1.1) Eosinophils # (Auto) 0.5 x10^3/uL (0.0-0.7) 0.0 x10^3/uL (0.0-0.7) Basophils # (Auto) 0.0 x10^3/uL (0.0-0.2) 0.0 x10^3/uL (0.0-0.2) D-Dimer (Tia) 0.83 ug/mlFEU (0.00-0.50) Sodium Level 138 mmol/L (136-145) 137 mmol/L (136-145) Potassium Level 4.6 mmol/L (3.5-5.1) 5.0 mmol/L (3.5-5.1) Chloride Level 102 mmol/L (98-107) 103 mmol/L (98-107) Carbon Dioxide Level 27 mmol/L (21-32) 26 mmol/L (21-32) Anion Gap 9 (6-14) 8 (6-14) Blood Urea Nitrogen 17 mg/dL (8-26) 18 mg/dL (8-26) Creatinine 1.1 mg/dL (0.7-1.3) 1.3 mg/dL (0.7-1.3) Estimated GFR (Cockcroft-Gault) 72.1 59.4 BUN/Creatinine Ratio 15 (6-20) 14 (6-20) Glucose Level 88 mg/dL (70-99) 149 mg/dL (70-99) Lactic Acid Level 1.0 mmol/L (0.4-2.0) Calcium Level 9.4 mg/dL (8.5-10.1) 9.2 mg/dL (8.5-10.1) Total Bilirubin 0.3 mg/dL (0.2-1.0) 0.2 mg/dL (0.2-1.0) Aspartate Amino Transf (AST/SGOT) 15 U/L (15-37) 13 U/L (15-37) Alanine Aminotransferase (ALT/SGPT) 42 U/L (16-63) 35 U/L (16-63) Alkaline Phosphatase 83 U/L (46-116) 79 U/L (46-116) Troponin I Quantitative < 0.017 ng/mL (0.000-0.055) C-Reactive Protein, Quantitative 9.3 mg/L (0-3.3) CH-Bri-C-Type Natriuretic Peptide 34 pg/mL (0-124) Total Protein 7.7 g/dL (6.4-8.2) 7.2 g/dL (6.4-8.2) Albumin 3.8 g/dL (3.4-5.0) 3.5 g/dL (3.4-5.0) Albumin/Globulin Ratio 1.0 (1.0-1.7) 0.9 (1.0-1.7) Segmented Neutrophils % 93 % (35-66) Band Neutrophils % 5 % (0-9) Lymphocytes % 2 % (24-48) Platelet Estimate Adequate (ADEQUATE) VTE Prophylaxis Ordered VTE Prophylaxis Devices: No VTE Pharmacological Prophylaxi: Yes Assessment/Plan Assessment/Plan cellulitis SIRS asthma morbid obesity, BMI 70 tobaccoism drug rash from clinda admit DANIELLE BENJAMIN MD May 29, 2019 08:51
[2019-05-29] MEDS ORDERED: FAMOTIDINE 20 MG/2 ML VIAL IVP SCH (09:00)
[2019-05-29] MEDS ORDERED: clonazePAM 1 MG TABLET PO SCH ×2 (09:00→12:00)
[2019-05-29] MEDS ORDERED: VANCOMYCIN 2 GM in IV NORMAL SALINE 500ML BAG 500 ML IV SCH (09:00)
[2019-05-29] MEDS: DICLOFENAC SODIUM 1% TOPICAL GEL 100GM TUBE. TP SCH ×4 (09:00→20:53)
[2019-05-29] MEDS ORDERED: NICOTINE POLACRILEX 2MG GUM PACKAGE of 12. BC PRN (09:30)
[2019-05-29] MEDS: clonazePAM 1 MG TABLET PO SCH ×4 (09:44→20:54)
--- NOTE | 2019-05-29 10:03 | PDOC ---
Infectious Disease Note Vital Sign Vital Signs Vital Signs Date Time Temp Pulse Resp B/P (MAP) Pulse Ox O2 Delivery O2 Flow Rate FiO2 05/29/19 08:48 89 124/64 05/29/19 07:31 94 Room Air 05/29/19 07:00 97.6 16 97.6 Labs Lab Laboratory Tests Test 05/28/19 19:50 05/29/19 04:23 White Blood Count 7.3 x10^3/uL (4.0-11.0) 6.1 x10^3/uL (4.0-11.0) Red Blood Count 4.59 x10^6/uL (4.30-5.70) 4.28 x10^6/uL (4.30-5.70) Hemoglobin 13.1 g/dL (13.0-17.5) 12.6 g/dL (13.0-17.5) Hematocrit 39.2 % (39.0-53.0) 36.4 % (39.0-53.0) Mean Corpuscular Volume 85 fL (79-100) 85 fL (79-100) Mean Corpuscular Hemoglobin 29 pg (25-35) 29 pg (25-35) Mean Corpuscular Hemoglobin Concent 33 g/dL (31-37) 35 g/dL (31-37) Red Cell Distribution Width 14.6 % (11.5-14.5) 14.0 % (11.5-14.5) Platelet Count 250 x10^3/uL (140-400) 209 x10^3/uL (140-400) Neutrophils (%) (Auto) 61 % (31-73) 91 % (31-73) Lymphocytes (%) (Auto) 23 % (24-48) 8 % (24-48) Monocytes (%) (Auto) 8 % (0-9) 1 % (0-9) Eosinophils (%) (Auto) 7 % (0-3) 0 % (0-3) Basophils (%) (Auto) 1 % (0-3) 0 % (0-3) Neutrophils # (Auto) 4.5 x10^3/uL (1.8-7.7) 5.5 x10^3/uL (1.8-7.7) Lymphocytes # (Auto) 1.7 x10^3/uL (1.0-4.8) 0.5 x10^3/uL (1.0-4.8) Monocytes # (Auto) 0.6 x10^3/uL (0.0-1.1) 0.1 x10^3/uL (0.0-1.1) Eosinophils # (Auto) 0.5 x10^3/uL (0.0-0.7) 0.0 x10^3/uL (0.0-0.7) Basophils # (Auto) 0.0 x10^3/uL (0.0-0.2) 0.0 x10^3/uL (0.0-0.2) D-Dimer (Tia) 0.83 ug/mlFEU (0.00-0.50) Sodium Level 138 mmol/L (136-145) 137 mmol/L (136-145) Potassium Level 4.6 mmol/L (3.5-5.1) 5.0 mmol/L (3.5-5.1) Chloride Level 102 mmol/L (98-107) 103 mmol/L (98-107) Carbon Dioxide Level 27 mmol/L (21-32) 26 mmol/L (21-32) Anion Gap 9 (6-14) 8 (6-14) Blood Urea Nitrogen 17 mg/dL (8-26) 18 mg/dL (8-26) Creatinine 1.1 mg/dL (0.7-1.3) 1.3 mg/dL (0.7-1.3) Estimated GFR (Cockcroft-Gault) 72.1 59.4 BUN/Creatinine Ratio 15 (6-20) 14 (6-20) Glucose Level 88 mg/dL (70-99) 149 mg/dL (70-99) Lactic Acid Level 1.0 mmol/L (0.4-2.0) Calcium Level 9.4 mg/dL (8.5-10.1) 9.2 mg/dL (8.5-10.1) Total Bilirubin 0.3 mg/dL (0.2-1.0) 0.2 mg/dL (0.2-1.0) Aspartate Amino Transf (AST/SGOT) 15 U/L (15-37) 13 U/L (15-37) Alanine Aminotransferase (ALT/SGPT) 42 U/L (16-63) 35 U/L (16-63) Alkaline Phosphatase 83 U/L (46-116) 79 U/L (46-116) Troponin I Quantitative < 0.017 ng/mL (0.000-0.055) C-Reactive Protein, Quantitative 9.3 mg/L (0-3.3) LH-Mtc-L-Type Natriuretic Peptide 34 pg/mL (0-124) Total Protein 7.7 g/dL (6.4-8.2) 7.2 g/dL (6.4-8.2) Albumin 3.8 g/dL (3.4-5.0) 3.5 g/dL (3.4-5.0) Albumin/Globulin Ratio 1.0 (1.0-1.7) 0.9 (1.0-1.7) Segmented Neutrophils % 93 % (35-66) Band Neutrophils % 5 % (0-9) Lymphocytes % 2 % (24-48) Platelet Estimate Adequate (ADEQUATE) Objective Assessment Left leg cellulitis Tinea infection bet toes Drug eruption Obesity HTN SVT Plan Plan of Care change vanc to cefazolin diflucan wt loss quit smoking LORA XAVIER MD May 29, 2019 10:03
--- NOTE | 2019-05-29 10:53 | CONS ---
DATE OF CONSULTATION: 05/29/2019 REQUESTING PHYSICIAN: Dr. Aparicio. REASON FOR CONSULTATION: Cellulitis and drug eruption. HISTORY OF PRESENT ILLNESS: This is a 48-year-old gentleman with morbid obesity, who presented to the ER with left lower extremity cellulitis. The patient was given clindamycin. The patient took it then he came back with redness initially improved and then came back. The patient also broke out in rash all over the body. Denies any fever. Denies any nausea, vomiting, diarrhea, chest pain, shortness of breath, abdominal pain, urinary symptoms or bowel symptoms. PAST MEDICAL HISTORY: Positive for morbid obesity, hyperlipidemia, hypertension, arthritis, anxiety, depression, asthma, panic disorder. SOCIAL HISTORY: Negative for drug use. Positive for smoking. No alcohol use. ALLERGIES: LISTED ALLERGIC TO SULFA, CODEINE AND MORPHINE. CURRENT MEDICATIONS: Reviewed. The patient is on vancomycin. REVIEW OF SYSTEMS: As per HPI, all other systems reviewed are negative. PHYSICAL EXAMINATION: GENERAL: Alert, oriented gentleman, not in distress. VITAL SIGNS: Stable, afebrile. HEENT: NAD. NECK: Supple, no JVP, no lymphadenopathy. LUNGS: Clear. HEART: S1, S2 regular. ABDOMEN: Benign. EXTREMITIES: Right lower extremity is unremarkable. Left lower extremity has erythema of the leg with also some scratch patel he says it is very itchy. There is no pustule. There is no pus pocket or abscess. He does have tinea infection between the toes. NEUROLOGICAL: The patient is alert, awake and appropriate. No focal neurologic deficit. SKIN: Rest of the skin does have erythematous macular rash all over the body, classic for drug eruption. LABORATORY DATA: White count is normal. Platelets are normal. BUN and creatinine is normal. Lactic acid was normal. He had chest x-ray and CTA, which was unremarkable. IMPRESSION: 1. Left lower extremity cellulitis. 2. Tinea infection between the toes. 3. Drug eruption, may have been secondary to clindamycin. 4. Hypertension. 5. Hyperlipidemia. 6. Obesity. RECOMMENDATION: Change vancomycin to cefazolin, add Diflucan, supportive care, need to lose weight, also need to stop smoking and also stop scratching. Thank you very much, Dr. Aparicio, for giving me the opportunity to participate in this patient's care. LORA XAVIER MD DR: Iggy JOB#: [id number] / [id number]
[2019-05-29 11:00] VITALS: BP 124/61
[2019-05-29] MEDS: FLUCONAZOLE 100 MG TABLET. PO SCH (12:26)
[2019-05-29] MEDS ORDERED: ceFAZolin SODIUM 1 GM in IV DEXTROSE 5% 50 ML IV SCH (14:00)
[2019-05-29] MEDS: ceFAZolin SODIUM IV Push 1 GM VIAL. IVP SCH ×2 (14:32→22:19)
[2019-05-29 15:00] VITALS: BP 139/51
--- NOTE | 2019-05-29 15:26 | PDOC ---
PULMONARY PROGRESS NOTES Vitals Vital Signs Date Time Temp Pulse Resp B/P (MAP) Pulse Ox O2 Delivery O2 Flow Rate FiO2 05/29/19 15:00 98.1 83 16 139/51 (80) 92 Room Air 98.1 Lungs: Clear Cardiovascular: S1, S2 Abdomen: Soft Labs Laboratory Tests Test 05/28/19 19:50 05/29/19 04:23 White Blood Count 7.3 x10^3/uL (4.0-11.0) 6.1 x10^3/uL (4.0-11.0) Red Blood Count 4.59 x10^6/uL (4.30-5.70) 4.28 x10^6/uL (4.30-5.70) Hemoglobin 13.1 g/dL (13.0-17.5) 12.6 g/dL (13.0-17.5) Hematocrit 39.2 % (39.0-53.0) 36.4 % (39.0-53.0) Mean Corpuscular Volume 85 fL (79-100) 85 fL (79-100) Mean Corpuscular Hemoglobin 29 pg (25-35) 29 pg (25-35) Mean Corpuscular Hemoglobin Concent 33 g/dL (31-37) 35 g/dL (31-37) Red Cell Distribution Width 14.6 % (11.5-14.5) 14.0 % (11.5-14.5) Platelet Count 250 x10^3/uL (140-400) 209 x10^3/uL (140-400) Neutrophils (%) (Auto) 61 % (31-73) 91 % (31-73) Lymphocytes (%) (Auto) 23 % (24-48) 8 % (24-48) Monocytes (%) (Auto) 8 % (0-9) 1 % (0-9) Eosinophils (%) (Auto) 7 % (0-3) 0 % (0-3) Basophils (%) (Auto) 1 % (0-3) 0 % (0-3) Neutrophils # (Auto) 4.5 x10^3/uL (1.8-7.7) 5.5 x10^3/uL (1.8-7.7) Lymphocytes # (Auto) 1.7 x10^3/uL (1.0-4.8) 0.5 x10^3/uL (1.0-4.8) Monocytes # (Auto) 0.6 x10^3/uL (0.0-1.1) 0.1 x10^3/uL (0.0-1.1) Eosinophils # (Auto) 0.5 x10^3/uL (0.0-0.7) 0.0 x10^3/uL (0.0-0.7) Basophils # (Auto) 0.0 x10^3/uL (0.0-0.2) 0.0 x10^3/uL (0.0-0.2) D-Dimer (Tia) 0.83 ug/mlFEU (0.00-0.50) Sodium Level 138 mmol/L (136-145) 137 mmol/L (136-145) Potassium Level 4.6 mmol/L (3.5-5.1) 5.0 mmol/L (3.5-5.1) Chloride Level 102 mmol/L (98-107) 103 mmol/L (98-107) Carbon Dioxide Level 27 mmol/L (21-32) 26 mmol/L (21-32) Anion Gap 9 (6-14) 8 (6-14) Blood Urea Nitrogen 17 mg/dL (8-26) 18 mg/dL (8-26) Creatinine 1.1 mg/dL (0.7-1.3) 1.3 mg/dL (0.7-1.3) Estimated GFR (Cockcroft-Gault) 72.1 59.4 BUN/Creatinine Ratio 15 (6-20) 14 (6-20) Glucose Level 88 mg/dL (70-99) 149 mg/dL (70-99) Lactic Acid Level 1.0 mmol/L (0.4-2.0) Calcium Level 9.4 mg/dL (8.5-10.1) 9.2 mg/dL (8.5-10.1) Total Bilirubin 0.3 mg/dL (0.2-1.0) 0.2 mg/dL (0.2-1.0) Aspartate Amino Transf (AST/SGOT) 15 U/L (15-37) 13 U/L (15-37) Alanine Aminotransferase (ALT/SGPT) 42 U/L (16-63) 35 U/L (16-63) Alkaline Phosphatase 83 U/L (46-116) 79 U/L (46-116) Troponin I Quantitative < 0.017 ng/mL (0.000-0.055) C-Reactive Protein, Quantitative 9.3 mg/L (0-3.3) ZA-Gay-S-Type Natriuretic Peptide 34 pg/mL (0-124) Total Protein 7.7 g/dL (6.4-8.2) 7.2 g/dL (6.4-8.2) Albumin 3.8 g/dL (3.4-5.0) 3.5 g/dL (3.4-5.0) Albumin/Globulin Ratio 1.0 (1.0-1.7) 0.9 (1.0-1.7) Segmented Neutrophils % 93 % (35-66) Band Neutrophils % 5 % (0-9) Lymphocytes % 2 % (24-48) Platelet Estimate Adequate (ADEQUATE) Laboratory Tests Test 05/28/19 19:50 05/29/19 04:23 White Blood Count 7.3 x10^3/uL (4.0-11.0) 6.1 x10^3/uL (4.0-11.0) Red Blood Count 4.59 x10^6/uL (4.30-5.70) 4.28 x10^6/uL (4.30-5.70) Hemoglobin 13.1 g/dL (13.0-17.5) 12.6 g/dL (13.0-17.5) Hematocrit 39.2 % (39.0-53.0) 36.4 % (39.0-53.0) Mean Corpuscular Volume 85 fL (79-100) 85 fL (79-100) Mean Corpuscular Hemoglobin 29 pg (25-35) 29 pg (25-35) Mean Corpuscular Hemoglobin Concent 33 g/dL (31-37) 35 g/dL (31-37) Red Cell Distribution Width 14.6 % (11.5-14.5) 14.0 % (11.5-14.5) Platelet Count 250 x10^3/uL (140-400) 209 x10^3/uL (140-400) Neutrophils (%) (Auto) 61 % (31-73) 91 % (31-73) Lymphocytes (%) (Auto) 23 % (24-48) 8 % (24-48) Monocytes (%) (Auto) 8 % (0-9) 1 % (0-9) Eosinophils (%) (Auto) 7 % (0-3) 0 % (0-3) Basophils (%) (Auto) 1 % (0-3) 0 % (0-3) Neutrophils # (Auto) 4.5 x10^3/uL (1.8-7.7) 5.5 x10^3/uL (1.8-7.7) Lymphocytes # (Auto) 1.7 x10^3/uL (1.0-4.8) 0.5 x10^3/uL (1.0-4.8) Monocytes # (Auto) 0.6 x10^3/uL (0.0-1.1) 0.1 x10^3/uL (0.0-1.1) Eosinophils # (Auto) 0.5 x10^3/uL (0.0-0.7) 0.0 x10^3/uL (0.0-0.7) Basophils # (Auto) 0.0 x10^3/uL (0.0-0.2) 0.0 x10^3/uL (0.0-0.2) D-Dimer (Tia) 0.83 ug/mlFEU (0.00-0.50) Sodium Level 138 mmol/L (136-145) 137 mmol/L (136-145) Potassium Level 4.6 mmol/L (3.5-5.1) 5.0 mmol/L (3.5-5.1) Chloride Level 102 mmol/L (98-107) 103 mmol/L (98-107) Carbon Dioxide Level 27 mmol/L (21-32) 26 mmol/L (21-32) Anion Gap 9 (6-14) 8 (6-14) Blood Urea Nitrogen 17 mg/dL (8-26) 18 mg/dL (8-26) Creatinine 1.1 mg/dL (0.7-1.3) 1.3 mg/dL (0.7-1.3) Estimated GFR (Cockcroft-Gault) 72.1 59.4 BUN/Creatinine Ratio 15 (6-20) 14 (6-20) Glucose Level 88 mg/dL (70-99) 149 mg/dL (70-99) Lactic Acid Level 1.0 mmol/L (0.4-2.0) Calcium Level 9.4 mg/dL (8.5-10.1) 9.2 mg/dL (8.5-10.1) Total Bilirubin 0.3 mg/dL (0.2-1.0) 0.2 mg/dL (0.2-1.0) Aspartate Amino Transf (AST/SGOT) 15 U/L (15-37) 13 U/L (15-37) Alanine Aminotransferase (ALT/SGPT) 42 U/L (16-63) 35 U/L (16-63) Alkaline Phosphatase 83 U/L (46-116) 79 U/L (46-116) Troponin I Quantitative < 0.017 ng/mL (0.000-0.055) C-Reactive Protein, Quantitative 9.3 mg/L (0-3.3) LE-Iol-S-Type Natriuretic Peptide 34 pg/mL (0-124) Total Protein 7.7 g/dL (6.4-8.2) 7.2 g/dL (6.4-8.2) Albumin 3.8 g/dL (3.4-5.0) 3.5 g/dL (3.4-5.0) Albumin/Globulin Ratio 1.0 (1.0-1.7) 0.9 (1.0-1.7) Segmented Neutrophils % 93 % (35-66) Band Neutrophils % 5 % (0-9) Lymphocytes % 2 % (24-48) Platelet Estimate Adequate (ADEQUATE) Medications Active Scripts Medications Dose Route/Sig Max Daily Dose Days Date Category Tramadol Hcl 50 Mg Tablet 100 Mg PO TID PRN 05/28/19 Reported Clonazepam 1 Mg Tablet 1 Mg PO NOON 05/28/19 Reported Clonazepam 1 Mg Tablet 1 Mg PO QID 05/28/19 Reported Zoloft (Sertraline Hcl) 100 Mg Tablet 3 Tab PO DAILY 05/28/19 Reported Cyclobenzaprine Hcl 10 Mg Tablet 1 Tab PO QHS 05/28/19 Reported Tizanidine Hcl 4 Mg Tablet 1 Tab PO TID 05/28/19 Reported Cetirizine Hcl 10 Mg Tablet 10 Mg PO DAILY 05/28/19 Reported [verapamil] 120 Mg PO TID 01/21/18 Reported Voltaren (Diclofenac Sodium) 100 Gm Gel..gram. 1 Gm TP QID 01/21/18 Reported Gabapentin 800 Mg Tablet 800 Mg PO TID 01/21/18 Reported Carvedilol (Carvedilol) 6.25 Mg Tablet 1 Tab PO BID 01/21/18 Reported Atorvastatin Calcium 10 Mg Tablet 1 Tab PO DAILY 01/21/18 Reported Ibuprofen 800 Mg Tablet 800 Mg PO TID PRN 01/21/18 Reported Famotidine 40 Mg Tablet 40 Mg PO DAILY 01/21/18 Reported Montelukast Sodium Tablet (Montelukast Sodium) 10 Mg Tablet 10 Mg PO HS 01/21/18 Reported Symbicort 160-4.5 Mcg Inhaler (Budesonide/Formoterol Fumarate) 10.2 Gm Hfa.aer.ad 2 Puff IH BID 01/21/18 Reported Spiriva (Tiotropium [place]) 18 Mcg Cap.w.dev 1 Cap IH DAILY 01/21/18 Reported Aspirin 325 Mg Tablet 1 Tab PO DAILY 01/21/18 Reported Buspirone Hcl 30 Mg Tablet 1 Tab PO TID 01/08/16 Reported Albuterol Sulfate Neb Soln (Albuterol Sulfate) 1.25 Mg/3 Ml Vial.neb 1.25 Mg NEB Q4HRS PRN 01/08/16 Reported Spironolactone 50 Mg Tablet 2 Tab PO DAILY 01/08/16 Reported Lisinopril 20 Mg Tablet 2 Tab PO DAILY 01/08/16 Reported Clonidine Hcl 0.2 Mg Tablet 1 Tab PO BID 01/08/16 Reported Impression . FULL NOTE DICTATED ASTHMA EX CELLULITIS THANKS DARRON LÓPEZ MD May 29, 2019 15:26
[2019-05-29 19:00] VITALS: BP 101/48
[2019-05-29] MEDS: LACTOBACILLUS RHAMNOSUS GG 1 CAPSULE. PO SCH (20:55)
[2019-05-29] MEDS ORDERED: ATORVASTATIN CALCIUM 10 MG TABLET. PO SCH (21:00)
[2019-05-29] MEDS ORDERED: MONTELUKAST SODIUM 10 MG TABLET. PO SCH (21:00)
[2019-05-29] MEDS ORDERED: CYCLOBENZAPRINE 10 MG TABLET. PO SCH (21:00)
[2019-05-29 23:00] VITALS: BP 111/51
--- NOTE | 2019-05-29 23:04 | CONS ---
DATE OF CONSULTATION: 05/29/2019 ATTENDING PHYSICIAN: Nicole Aparicio MD REASON FOR CONSULTATION: The patient seen in pulmonary consultation at the request of Dr. Aparicio for history of asthma. HISTORY OF PRESENT ILLNESS: The patient is a 48-year-old that was admitted with some cellulitis. He had been treated as an outpatient with no significant improvement. He has been having some increasing shortness of breath with wheezing. He is utilizing his nebulized machine at home on a regular basis 3-4 times daily. He is also on Symbicort, Spiriva. The patient has a prior history of asthma as a child, mainly driven by exercise. He now smokes less than a pack of cigarettes a day. He has a cough, mostly nonproductive. He had a chest x-ray and CT angiogram. The CT angiogram was suboptimal for pulmonary embolism. There was no central PE. There was bilateral calcified granulomas and calcified lymph node. PAST MEDICAL HISTORY: 1. Asthma as a child, driven by exercise. 2. Tobacco dependent. 3. COPD. 4. Gastroesophageal reflux. 5. Morbid obesity. 6. Osteoarthritis. PAST SURGICAL HISTORY: No recent major surgery. FAMILY HISTORY: Remarkable for heart disease and cancer. SOCIAL HISTORY: He smokes. Denies any excessive alcohol intake. ALLERGIES: LISTED TO SULFA, CODEINE, AND MORPHINE. REVIEW OF SYSTEMS: As indicated above. Otherwise, a 10-point system was reviewed and negative. PHYSICAL EXAMINATION: GENERAL: Morbid obese individual with a BMI of 69. VITAL SIGNS: O2 saturation was greater than 92% on room air. HEENT: Eyes, the sclerae were nonicteric. NECK: Jugular venous distention could not be assessed secondary to body habitus. CHEST: Full expansion. LUNGS: Expiratory wheeze, scattered rhonchi, adequate airway flow. CARDIOVASCULAR: Regular rate and rhythm with S1, S2. No S3. ABDOMEN: Soft, nontender, nondistended. EXTREMITIES: No clubbing, cyanosis, or edema. NEUROLOGIC: The patient was awake, alert, following commands. A detailed neuro exam was not performed. LABORATORY DATA: Reviewed. White count was normal. Hemoglobin and hematocrit were noted. D-dimer was slightly elevated. Electrolytes were noted. IMPRESSION: 1. Left lower extremity cellulitis. 2. Exacerbation of asthma. 3. Tobacco dependence. 4. Chronic obstructive pulmonary disease with acute exacerbation. 5. Hypertension. 6. Hyperlipidemia. 7. Morbid obesity. 8. Possible obstructive sleep apnea. PLAN: 1. Continue current antibiotics per Infectious Disease service. 2. We will add steroids to his regimen. 3. Outpatient polysomnogram. 4. Nebulized treatments. 5. Follow clinical course and make recommendations depending on the patient's clinical response. I do appreciate the privilege in sharing in the patient's care. DARRON LÓPEZ MD DR: DENNY/juan JOB#: [id number] / [id number]
[2019-05-30] MEDS: methylPREDNISolone SOD SUCC PF 125 MG/2 ML VIAL. IV SCH ×2 (00:21→06:40)
[2019-05-30 03:00] VITALS: BP 104/47
[2019-05-30] MEDS: ceFAZolin SODIUM IV Push 1 GM VIAL. IVP SCH (06:40)
[2019-05-30 07:00] VITALS: BP 137/69
[2019-05-30] MEDS: BUDESONIDE 0.5 MG/2 ML NEBU. NEB SCH (07:36)
[2019-05-30] MEDS: IPRATRPIUM/ALBUTEROL 0.5/2.5MG 3 ML NEBU. NEB SCH ×2 (07:36→11:08)
--- NOTE | 2019-05-30 08:54 | PDOC ---
PULMONARY PROGRESS NOTES Vitals Vital Signs Date Time Temp Pulse Resp B/P (MAP) Pulse Ox O2 Delivery O2 Flow Rate FiO2 05/30/19 07:39 99 Room Air 05/30/19 07:00 98.3 84 16 137/69 (91) 98.3 Lungs: Clear Cardiovascular: S1, S2 Abdomen: Soft Labs Laboratory Tests Test 05/28/19 19:50 05/29/19 04:23 White Blood Count 7.3 x10^3/uL (4.0-11.0) 6.1 x10^3/uL (4.0-11.0) Red Blood Count 4.59 x10^6/uL (4.30-5.70) 4.28 x10^6/uL (4.30-5.70) Hemoglobin 13.1 g/dL (13.0-17.5) 12.6 g/dL (13.0-17.5) Hematocrit 39.2 % (39.0-53.0) 36.4 % (39.0-53.0) Mean Corpuscular Volume 85 fL (79-100) 85 fL (79-100) Mean Corpuscular Hemoglobin 29 pg (25-35) 29 pg (25-35) Mean Corpuscular Hemoglobin Concent 33 g/dL (31-37) 35 g/dL (31-37) Red Cell Distribution Width 14.6 % (11.5-14.5) 14.0 % (11.5-14.5) Platelet Count 250 x10^3/uL (140-400) 209 x10^3/uL (140-400) Neutrophils (%) (Auto) 61 % (31-73) 91 % (31-73) Lymphocytes (%) (Auto) 23 % (24-48) 8 % (24-48) Monocytes (%) (Auto) 8 % (0-9) 1 % (0-9) Eosinophils (%) (Auto) 7 % (0-3) 0 % (0-3) Basophils (%) (Auto) 1 % (0-3) 0 % (0-3) Neutrophils # (Auto) 4.5 x10^3/uL (1.8-7.7) 5.5 x10^3/uL (1.8-7.7) Lymphocytes # (Auto) 1.7 x10^3/uL (1.0-4.8) 0.5 x10^3/uL (1.0-4.8) Monocytes # (Auto) 0.6 x10^3/uL (0.0-1.1) 0.1 x10^3/uL (0.0-1.1) Eosinophils # (Auto) 0.5 x10^3/uL (0.0-0.7) 0.0 x10^3/uL (0.0-0.7) Basophils # (Auto) 0.0 x10^3/uL (0.0-0.2) 0.0 x10^3/uL (0.0-0.2) D-Dimer (Tia) 0.83 ug/mlFEU (0.00-0.50) Sodium Level 138 mmol/L (136-145) 137 mmol/L (136-145) Potassium Level 4.6 mmol/L (3.5-5.1) 5.0 mmol/L (3.5-5.1) Chloride Level 102 mmol/L (98-107) 103 mmol/L (98-107) Carbon Dioxide Level 27 mmol/L (21-32) 26 mmol/L (21-32) Anion Gap 9 (6-14) 8 (6-14) Blood Urea Nitrogen 17 mg/dL (8-26) 18 mg/dL (8-26) Creatinine 1.1 mg/dL (0.7-1.3) 1.3 mg/dL (0.7-1.3) Estimated GFR (Cockcroft-Gault) 72.1 59.4 BUN/Creatinine Ratio 15 (6-20) 14 (6-20) Glucose Level 88 mg/dL (70-99) 149 mg/dL (70-99) Lactic Acid Level 1.0 mmol/L (0.4-2.0) Calcium Level 9.4 mg/dL (8.5-10.1) 9.2 mg/dL (8.5-10.1) Total Bilirubin 0.3 mg/dL (0.2-1.0) 0.2 mg/dL (0.2-1.0) Aspartate Amino Transf (AST/SGOT) 15 U/L (15-37) 13 U/L (15-37) Alanine Aminotransferase (ALT/SGPT) 42 U/L (16-63) 35 U/L (16-63) Alkaline Phosphatase 83 U/L (46-116) 79 U/L (46-116) Troponin I Quantitative < 0.017 ng/mL (0.000-0.055) C-Reactive Protein, Quantitative 9.3 mg/L (0-3.3) ZW-Mrn-B-Type Natriuretic Peptide 34 pg/mL (0-124) Total Protein 7.7 g/dL (6.4-8.2) 7.2 g/dL (6.4-8.2) Albumin 3.8 g/dL (3.4-5.0) 3.5 g/dL (3.4-5.0) Albumin/Globulin Ratio 1.0 (1.0-1.7) 0.9 (1.0-1.7) Segmented Neutrophils % 93 % (35-66) Band Neutrophils % 5 % (0-9) Lymphocytes % 2 % (24-48) Platelet Estimate Adequate (ADEQUATE) Medications Active Scripts Medications Dose Route/Sig Max Daily Dose Days Date Category Tramadol Hcl 50 Mg Tablet 100 Mg PO TID PRN 05/28/19 Reported Clonazepam 1 Mg Tablet 1 Mg PO NOON 05/28/19 Reported Clonazepam 1 Mg Tablet 1 Mg PO QID 05/28/19 Reported Zoloft (Sertraline Hcl) 100 Mg Tablet 3 Tab PO DAILY 05/28/19 Reported Cyclobenzaprine Hcl 10 Mg Tablet 1 Tab PO QHS 05/28/19 Reported Tizanidine Hcl 4 Mg Tablet 1 Tab PO TID 05/28/19 Reported Cetirizine Hcl 10 Mg Tablet 10 Mg PO DAILY 05/28/19 Reported [verapamil] 120 Mg PO TID 01/21/18 Reported Voltaren (Diclofenac Sodium) 100 Gm Gel..gram. 1 Gm TP QID 01/21/18 Reported Gabapentin 800 Mg Tablet 800 Mg PO TID 01/21/18 Reported Carvedilol (Carvedilol) 6.25 Mg Tablet 1 Tab PO BID 01/21/18 Reported Atorvastatin Calcium 10 Mg Tablet 1 Tab PO DAILY 01/21/18 Reported Ibuprofen 800 Mg Tablet 800 Mg PO TID PRN 01/21/18 Reported Famotidine 40 Mg Tablet 40 Mg PO DAILY 01/21/18 Reported Montelukast Sodium Tablet (Montelukast Sodium) 10 Mg Tablet 10 Mg PO HS 01/21/18 Reported Symbicort 160-4.5 Mcg Inhaler (Budesonide/Formoterol Fumarate) 10.2 Gm Hfa.aer.ad 2 Puff IH BID 01/21/18 Reported Spiriva (Tiotropium [place]) 18 Mcg Cap.w.dev 1 Cap IH DAILY 01/21/18 Reported Aspirin 325 Mg Tablet 1 Tab PO DAILY 01/21/18 Reported Buspirone Hcl 30 Mg Tablet 1 Tab PO TID 01/08/16 Reported Albuterol Sulfate Neb Soln (Albuterol Sulfate) 1.25 Mg/3 Ml Vial.neb 1.25 Mg NEB Q4HRS PRN 01/08/16 Reported Spironolactone 50 Mg Tablet 2 Tab PO DAILY 01/08/16 Reported Lisinopril 20 Mg Tablet 2 Tab PO DAILY 01/08/16 Reported Clonidine Hcl 0.2 Mg Tablet 1 Tab PO BID 01/08/16 Reported Impression . FULL NOTE DICTATED ASTHMA EX CELLULITIS THANKS DARRON LÓPEZ MD May 30, 2019 08:54
[2019-05-30] MEDS: CARVEDILOL 6.25 MG TABLET. PO SCH (08:57)
[2019-05-30] MEDS: tiZANidine 4 MG TABLET. PO SCH (08:58)
[2019-05-30] MEDS: LISINOPRIL 20 MG TABLET PO SCH (08:58)
[2019-05-30] MEDS: ASPIRIN 325 MG TABLET PO SCH (08:58)
[2019-05-30] MEDS: FLUCONAZOLE 100 MG TABLET. PO SCH (08:58)
[2019-05-30] MEDS: LACTOBACILLUS RHAMNOSUS GG 1 CAPSULE. PO SCH (08:58)
[2019-05-30] MEDS: FAMOTIDINE 20 MG TABLET. PO SCH (08:58)
[2019-05-30] MEDS: CETIRIZINE HCL 10 MG TABLET. PO SCH (08:58)
[2019-05-30] MEDS: SPIRONOLACTONE 25 MG TABLET PO SCH (08:59)
[2019-05-30] MEDS: GABAPENTIN 400 MG CAPSULE. PO SCH (08:59)
[2019-05-30] MEDS: SERTRALINE 50 MG TABLET. PO SCH (08:59)
[2019-05-30] MEDS: clonazePAM 1 MG TABLET PO SCH (08:59)
[2019-05-30] MEDS: VERAPAMIL 40 MG TABLET. PO SCH (08:59)
[2019-05-30 09:00] VITALS: BP 137/69
[2019-05-30] MEDS: cloNIDine HCL 0.2 MG TABLET PO SCH (09:00)
[2019-05-30] MEDS ORDERED: PRED-220 PO (09:27)
[2019-05-30] MEDS ORDERED: CEFP200T PO (09:27)
[2019-05-30] MEDS ORDERED: Fluconazole PO (09:27)
--- NOTE | 2019-05-30 09:30 | PDOC3 ---
Discharge Summary Visit Information Date of Admission: May 29, 2019 Date of Discharge: May 30, 2019 Final Diagnosis 1. Left lower extremity cellulitis. 2. Tinea pedis 3. acute rash, Drug reaction, clinda 4. Hypertension. 5. Hyperlipidemia. 6. Obesity, morbid, BMI 69 7. tobacco use disorder 8. anxiety disorder and depression, on 3 agents, Problems Medical Problems: (1) Allergic reaction Status: Acute (2) Asthma exacerbation Status: Acute (3) Cellulitis Status: Acute Brief Hospital Course Allergies Allergies Coded Allergies Type Severity Reaction Last Updated Verified Sulfa (Sulfonamide Antibiotics) Allergy Intermediate Itching 01/08/16 Yes codeine Allergy Intermediate Itching 01/08/16 Yes morphine Allergy Intermediate Itching 01/08/16 Yes Vital Signs Vital Signs Date Time Temp Pulse Resp B/P (MAP) Pulse Ox O2 Delivery O2 Flow Rate FiO2 05/30/19 09:03 84 137/69 05/30/19 07:39 99 Room Air 05/30/19 07:00 98.3 16 98.3 Lab Results Laboratory Tests Test 05/28/19 19:50 05/29/19 04:23 White Blood Count 7.3 x10^3/uL (4.0-11.0) 6.1 x10^3/uL (4.0-11.0) Red Blood Count 4.59 x10^6/uL (4.30-5.70) 4.28 x10^6/uL (4.30-5.70) Hemoglobin 13.1 g/dL (13.0-17.5) 12.6 g/dL (13.0-17.5) Hematocrit 39.2 % (39.0-53.0) 36.4 % (39.0-53.0) Mean Corpuscular Volume 85 fL (79-100) 85 fL (79-100) Mean Corpuscular Hemoglobin 29 pg (25-35) 29 pg (25-35) Mean Corpuscular Hemoglobin Concent 33 g/dL (31-37) 35 g/dL (31-37) Red Cell Distribution Width 14.6 % (11.5-14.5) 14.0 % (11.5-14.5) Platelet Count 250 x10^3/uL (140-400) 209 x10^3/uL (140-400) Neutrophils (%) (Auto) 61 % (31-73) 91 % (31-73) Lymphocytes (%) (Auto) 23 % (24-48) 8 % (24-48) Monocytes (%) (Auto) 8 % (0-9) 1 % (0-9) Eosinophils (%) (Auto) 7 % (0-3) 0 % (0-3) Basophils (%) (Auto) 1 % (0-3) 0 % (0-3) Neutrophils # (Auto) 4.5 x10^3/uL (1.8-7.7) 5.5 x10^3/uL (1.8-7.7) Lymphocytes # (Auto) 1.7 x10^3/uL (1.0-4.8) 0.5 x10^3/uL (1.0-4.8) Monocytes # (Auto) 0.6 x10^3/uL (0.0-1.1) 0.1 x10^3/uL (0.0-1.1) Eosinophils # (Auto) 0.5 x10^3/uL (0.0-0.7) 0.0 x10^3/uL (0.0-0.7) Basophils # (Auto) 0.0 x10^3/uL (0.0-0.2) 0.0 x10^3/uL (0.0-0.2) D-Dimer (Tia) 0.83 ug/mlFEU (0.00-0.50) Sodium Level 138 mmol/L (136-145) 137 mmol/L (136-145) Potassium Level 4.6 mmol/L (3.5-5.1) 5.0 mmol/L (3.5-5.1) Chloride Level 102 mmol/L (98-107) 103 mmol/L (98-107) Carbon Dioxide Level 27 mmol/L (21-32) 26 mmol/L (21-32) Anion Gap 9 (6-14) 8 (6-14) Blood Urea Nitrogen 17 mg/dL (8-26) 18 mg/dL (8-26) Creatinine 1.1 mg/dL (0.7-1.3) 1.3 mg/dL (0.7-1.3) Estimated GFR (Cockcroft-Gault) 72.1 59.4 BUN/Creatinine Ratio 15 (6-20) 14 (6-20) Glucose Level 88 mg/dL (70-99) 149 mg/dL (70-99) Lactic Acid Level 1.0 mmol/L (0.4-2.0) Calcium Level 9.4 mg/dL (8.5-10.1) 9.2 mg/dL (8.5-10.1) Total Bilirubin 0.3 mg/dL (0.2-1.0) 0.2 mg/dL (0.2-1.0) Aspartate Amino Transf (AST/SGOT) 15 U/L (15-37) 13 U/L (15-37) Alanine Aminotransferase (ALT/SGPT) 42 U/L (16-63) 35 U/L (16-63) Alkaline Phosphatase 83 U/L (46-116) 79 U/L (46-116) Troponin I Quantitative < 0.017 ng/mL (0.000-0.055) C-Reactive Protein, Quantitative 9.3 mg/L (0-3.3) HO-Xcp-D-Type Natriuretic Peptide 34 pg/mL (0-124) Total Protein 7.7 g/dL (6.4-8.2) 7.2 g/dL (6.4-8.2) Albumin 3.8 g/dL (3.4-5.0) 3.5 g/dL (3.4-5.0) Albumin/Globulin Ratio 1.0 (1.0-1.7) 0.9 (1.0-1.7) Segmented Neutrophils % 93 % (35-66) Band Neutrophils % 5 % (0-9) Lymphocytes % 2 % (24-48) Platelet Estimate Adequate (ADEQUATE) Brief Hospital Course Mr. Capellan is a 48 old male, admit with redness and swelling, LLE, with diffuse rash to back and trunk with puritis. rash and cellulitis better at 23 hours, pain OK felt well, wanted to DC home Discharge Information Condition at Discharge: Improved Follow Up: Weeks Disposition/Orders: D/C to Home Scheduled Aspirin (Aspirin) 325 Mg Tablet, 1 TAB PO DAILY, #30 Ref 5 (Reported) Entered as Reported by: ANSELMO SMITH on 01/21/18 2242 Last Taken: Unknown Dose on 8/14/19 0900 Last Action: Continued on 05/28/192332 by HERO RIVERA Atorvastatin Calcium (Atorvastatin Calcium) 10 Mg Tablet, 1 TAB PO DAILY, #30 Ref 5 (Reported) Entered as Reported by: ANSELMO SMITH on 01/21/182241 Last Taken: Unknown Dose on 05/28/19899 Last Action: Continued on 05/28/192332 by HERO RIVERA Budesonide/Formoterol Fumarate (Symbicort 160-4.5 Mcg Inhaler) 10.2 Gm Hfa.aer.ad, 2 PUFF IH BID, #10.6 Ref 3 (Reported) Entered as Reported by: ANSELMO SMITH on 01/21/182241 Last Taken: Unknown Dose on 05/28/19899 Last Action: Converted on 05/28/192332 by HERO RIVERA Buspirone Hcl (Buspirone Hcl) 30 Mg Tablet, 1 TAB PO TID, #60 (Reported) Entered as Reported by: DANA LANCE on 01/08/16 1410 Last Taken: Unknown Dose on 05/28/19 1400 Last Action: Converted on 05/28/192332 by HERO RIVERA Carvedilol (Carvedilol ) 6.25 Mg Tablet, 1 TAB PO BID, #180 Ref 1 (Reported) Entered as Reported by: ANSELOM SMITH on 01/21/182241 Last Taken: Unknown Dose on 05/28/19899 Last Action: Continued on 05/28/192332 by HERO RIVERA Cefpodoxime Proxetil (Cefpodoxime Proxetil) 200 Mg Tablet, 1 TAB PO BID for cellulitis, #14 Prescribed by: DANIELLE BENJAMIN on 05/30/19926 Cetirizine Hcl (Cetirizine Hcl) 10 Mg Tablet, 10 MG PO DAILY for allergies, (Reported) Entered as Reported by: HERO RIVERA on 05/28/192329 Last Taken: Unknown Dose on 05/28/19899 Last Action: Continued on 05/28/192332 by HERO RIVERA Clonazepam (Clonazepam) 1 Mg Tablet, 1 MG PO QID for anxiety, #60 Ref 1 (Reported) Entered as Reported by: HERO RIVERA on 05/28/192329 Last Taken: Unknown Dose on 05/28/19899 Last Action: Edited on 05/29/19918 by RHIANNA SAINI Clonazepam (Clonazepam) 1 Mg Tablet, 1 MG PO NOON for anxiety, (Reported) Entered as Reported by: HERO RIVERA on 05/28/192329 Last Taken: Unknown Dose on 05/28/19 1200 Last Action: Continued on 05/28/192332 by HERO RIVERA Clonidine Hcl (Clonidine Hcl) 0.2 Mg Tablet, 1 TAB PO BID, #60 Ref 5 (Reported) Entered as Reported by: DANA LANCE on 01/08/16 1410 Last Taken: Unknown Dose on 05/28/19899 Last Action: Continued on 05/28/192332 by HERO RIVERA Cyclobenzaprine Hcl (Cyclobenzaprine Hcl) 10 Mg Tablet, 1 TAB PO QHS for muscle spasms, #30 (Reported) Entered as Reported by: HERO RIVERA on 05/28/192329 Last Taken: Unknown Dose on 05/27/19 2100 Last Action: Continued on 05/28/192332 by HERO RIVERA Diclofenac Sodium (Voltaren) 100 Gm Gel..gram., 1 GM TP QID, #100 Ref 2 (Reported) Entered as Reported by: ANSELMO SMITH on 01/21/182241 Last Taken: Unknown Dose on 05/28/19 1400 Last Action: Continued on 05/28/192332 by HERO RIVERA Famotidine (Famotidine) 40 Mg Tablet, 40 MG PO DAILY, (Reported) Entered as Reported by: ANSELMO SMITH on 01/21/182241 Last Taken: Unknown Dose on 05/28/19899 Last Action: Converted on 05/28/192332 by HERO RIVERA Gabapentin (Gabapentin) 800 Mg Tablet, 800 MG PO TID, (Reported) Entered as Reported by: ANSELMO SMITH on 01/21/182241 Last Taken: Unknown Dose on 05/28/19 1400 Last Action: Converted on 05/28/192332 by HERO RIVERA Lisinopril (Lisinopril) 20 Mg Tablet, 2 TAB PO DAILY, #30 Ref 5 (Reported) Entered as Reported by: DANA LANCE on 01/08/16 1410 Last Taken: Unknown Dose on 05/28/19899 Last Action: Continued on 05/28/192332 by HERO RIVERA Montelukast Sodium (Montelukast Sodium Tablet ) 10 Mg Tablet, 10 MG PO HS for FOR ASTHMA, #30 Ref 0 (Reported) Entered as Reported by: ANSELMO SMITH on 01/21/182241 Last Taken: Unknown Dose on 05/27/19 2100 Last Action: Continued on 05/28/192332 by HERO RIVERA Prednisone (Prednisone ) 10 Mg Tablet, 10 MG PO UD for asthma, #30 Ref 0 Take 5 tablets by mouth daily for 2 days, then take 4 tablets by mouth daily for 2 days, then take 3 tablets by mouth daily for 2 days, then take 2 tablets by mouth daily for 2 days, then take 1 tablets by mouth daily for 2 days, then stop. Prescribed by: DANIELLE BENJAMIN on 05/30/19926 Sertraline Hcl (Zoloft) 100 Mg Tablet, 3 TAB PO DAILY for depression, #30 Ref 5 (Reported) Entered as Reported by: HERO RIVERA on 05/28/192329 Last Taken: Unknown Dose on 05/28/19 1400 Last Action: Converted on 05/28/192332 by HERO RIVERA Spironolactone (Spironolactone) 50 Mg Tablet, 2 TAB PO DAILY, #30 Ref 5 (Reported) Entered as Reported by: DANA LANCE on 01/08/16 1410 Last Taken: Unknown Dose on 05/28/19899 Last Action: Converted on 05/28/192332 by HERO RIVERA Tiotropium [place] (Spiriva) 18 Mcg Cap.w.dev, 1 CAP IH DAILY, #30 Ref 3 (Reported) Entered as Reported by: ANSELMO SMITH on 01/21/182241 Last Taken: Unknown Dose on 05/28/19899 Last Action: Converted on 05/28/192332 by HERO RIVERA Tizanidine Hcl (Tizanidine Hcl) 4 Mg Tablet, 1 TAB PO TID for muscle spasms, #90 (Reported) Entered as Reported by: HERO RIVERA on 05/28/192329 Last Taken: Unknown Dose on 05/28/191399 Last Action: Continued on 05/28/192332 by HERO RIVERA [Fluconazole] 100 MG TABLET, 200 MG PO DAILY for 7 Days, #14 Prescribed by: DANIELLE BENJAMIN on 05/30/19926 [verapamil] , 120 MG PO TID, (Reported) Entered as Reported by: ANSELMO SMITH on 01/21/182242 Last Taken: Unknown Dose on 05/28/191399 Last Action: Converted on 2332 by HERO RIVERA Scheduled PRN Albuterol Sulfate (Albuterol Sulfate Neb Soln) 1.25 Mg/3 Ml Vial.neb, 1.25 MG NEB Q4HRS PRN for SHORTNESS OF BREATH, Ref 0 (Reported) Entered as Reported by: DANA LANCE on 01/08/16 1410 Last Taken: Unknown Dose on 05/28/19899 Last Action: Converted on 05/28/192332 by HERO RIVERA Ibuprofen (Ibuprofen) 800 Mg Tablet, 800 MG PO TID PRN for INFLAMMATION, (Reported) Entered as Reported by: ANSELMO SMITH on 01/21/182241 Last Taken: Unknown Dose on 05/28/19899 Last Action: Converted on 05/28/192332 by HERO RIVERA Tramadol Hcl (Tramadol Hcl) 50 Mg Tablet, 100 MG PO TID PRN for PAIN, Ref 0 (Reported) Entered as Reported by: HERO RIVERA on 05/28/192329 Last Taken: Unknown Dose on 05/28/191399 Last Action: Continued on 05/28/192332 by HERO RIVERA Discontinued Medications Cetirizine Hcl (Zyrtec) 10 Mg Tablet, 10 MG PO PRN DAILY PRN for ALLERGIES, (Reported) Entered as Reported by: ANSELMO SMITH on 01/21/182241 Last Action: Discontinued on 05/28/192329 by HERO RIVERA Patient Instructions Patient Instructions > 30 min face to face f/u primary care tobacco cessation discussed, 3 min DANIELLE BENJAMIN MD May 30, 2019 09:30
[2019-05-30] MEDS: DICLOFENAC SODIUM 1% TOPICAL GEL 100GM TUBE. TP SCH (10:38)
[2019-05-30] MEDS: busPIRone 10 MG TABLET. PO SCH (10:38)
--- NOTE | 2019-05-30 10:42 | NUR ---
SW following pt for dc needs. Chart reviewed and discussed with RN. Pt discharging with self care today.
--- NOTE | 2019-05-30 11:12 | NUR ---
Discharge Note: KIKI ROBLEDO Discharge instructions and discharge home medications reviewed with Patient and a copy given. All questions have been answered and understanding verbalized. The following instructions and handouts were given: Cellulitis Discontinued lines and drains: Peripheral IV intact. Patient discharged to Home or Self Care with Family Member via Wheelchair
== END 2019-05-30 11:14 | disposition home or self-care (01) | DRG 191 ==
LOC: ER 19:42 → 5 NORTH 21:30
PROVIDERS: ADMIT Family Medicine; ATTEND Family Medicine
DX: J44.1 Chronic obstructive pulmonary disease with (acute) exacerbation (principal); L03.116 Cellulitis of left lower limb; Z68.45 Body mass index [BMI] 70 or greater, adult; R65.10 Systemic inflammatory response syndrome (SIRS) of non-infectious origin without acute organ dysfunction; I47.1 Supraventricular tachycardia; Z68.44 Body mass index [BMI] 60.0-69.9, adult; Z88.2 Allergy status to sulfonamides; Z88.8 Allergy status to other drugs, medicaments and biological substances; B35.3 Tinea pedis; E66.01 Morbid (severe) obesity due to excess calories; E78.00 Pure hypercholesterolemia, unspecified; E78.5 Hyperlipidemia, unspecified; F17.210 Nicotine dependence, cigarettes, uncomplicated; F32.9 Major depressive disorder, single episode, unspecified; F41.0 Panic disorder [episodic paroxysmal anxiety]; I10 Essential (primary) hypertension; K21.9 Gastro-esophageal reflux disease without esophagitis; L27.0 Generalized skin eruption due to drugs and medicaments taken internally; Z87.09 Personal history of other diseases of the respiratory system; M19.90 Unspecified osteoarthritis, unspecified site
CPT/HCPCS: 36415; 71045; 71275; 80053; 83605; 83880; 84484; 85007; 85025; 85379; 86140; 87040; 93005; 94640; 96365; 96372; 96375; J0690; J2930; J3370; J3490; J7040; J7613; J7620; J7626; Q0163; Q9967; 99285-25; G0378

== ENCOUNTER 2022-01-04 12:12 | Observation (INO) | payer MEDICAID, OTHER ==
[~2022-01-04] VITALS: Ht 190.5 cm; Wt 217.3 kg
[~2022-01-04 12:12] MED LIST changes: +CEFP200T PO; +CETI10TA16 PO; -CETI10TA22 PO; +CETI10TA74 PO; -CLIN150C14 PO; +CLIN150C16 PO; -CLON1TAB11 PO; +CLONAZEPAM1 MG PO; +CYCL10TA19 PO; -DICL100G18 TP; +DICL100G54 TP; +Fluconazole PO; -LISI-334 PO; +LISI20TA18 PO; +PRED-220 PO; +TIZA-75 PO
--- NOTE | 2022-01-04 13:53 | PHYS DOC ---
Past Medical History Past Medical History: Anxiety, Arthritis, Asthma, COPD, Depression, High Cholesterol, Hypertension Additional Past Medical Histor: Tachycardia, panic disorder, morbid obesity, DDD Past Surgical History: No Surgical History Smoking Status: Current Every Day Smoker Additional Information: 1 PPD Alcohol Use: None Drug Use: None Social History Narrative: DELTA 8/DELTA 9 THC General Adult EDM: Chief Complaint: ABNORMAL LABS HPI: HPI: Patient is a 51-year-old male who presents to the emergency department from his primary care provider Dr. Granados for abnormal labs. Patient reports that he had labs drawn 2 days ago and received a phone call from his primary care provider telling him that he had an elevated potassium level and abnormalities in his renal function and needed to be seen in the emergency department. Patient has no complaints at this time. He denies chest pain, shortness of breath, nausea, vomiting, fevers, pain. Patient does have a history of obesity, asthma/COPD, SVT, hypertension, hyperlipidemia, CHF, anxiety depression. She takes lisinopril, spironolactone, carvedilol, atorvastatin and 40 of Lasix. He takes potassium supplementation. He reports that after his primary care provider received his lab results she discontinued his Lasix on Sunday. Patient reports that he has been taking these medications as directed and has not missed any doses. Review of Systems: Review of Systems: Constitutional: See HPI Respiratory: See HPI Cardiovascular: See HPI GI: See HPI Endocrine: See HPI Psychiatric: See HPI Heart Score: C/O Chest Pain: No Risk Factors: Risk Factors: DM, Current or recent (<one month) smoker, HTN, HLP, family history of CAD, obesity. Risk Scores: Score 0 - 3: 2.5% MACE over next 6 weeks - Discharge Home Score 4 - 6: 20.3% MACE over next 6 weeks - Admit for Clinical Observation Score 7 - 10: 72.7% MACE over next 6 weeks - Early Invasive Strategies Allergies: Allergies: Allergies Coded Allergies Type Severity Reaction Last Updated Verified Sulfa (Sulfonamide Antibiotics) Allergy Intermediate Itching 01/08/16 Yes clindamycin Allergy Intermediate Rash 05/30/19 Yes codeine Allergy Intermediate Itching 01/08/16 Yes morphine Allergy Intermediate Itching 01/08/16 Yes Physical Exam: PE: Constitutional: Well developed, well nourished, no acute distress, non-toxic appearance. [] HENT: Normocephalic, atraumatic, bilateral external ears normal, oropharynx moist, no oral exudates, nose normal. [] Eyes: PERRL, EOMI, conjunctiva normal, no discharge. [] Neck: Normal range of motion, no tenderness, supple, no stridor. [] Cardiovascular:Heart rate regular rhythm, no murmur [] Lungs & Thorax: Bilateral breath sounds clear to auscultation [] Abdomen: Bowel sounds normal, soft, no tenderness, obese, no masses, no pulsatile masses. [] Skin: Warm, dry, no erythema, no rash. [] Back: Normal range of motion Extremities: No tenderness, no cyanosis, no clubbing, ROM intact, 2+ pitting edema noted bilateral lower extremities Neurologic: Alert and oriented X 3, normal motor function, normal sensory function, no focal deficits noted. [] Psychologic: Affect normal, judgement normal, mood normal. [] Current Patient Data: Labs: Laboratory Tests Test 01/04/22 13:35 White Blood Count 7.3 x10^3/uL Red Blood Count 4.04 x10^6/uL Hemoglobin 11.4 g/dL Hematocrit 34.8 % Mean Corpuscular Volume 86 fL Mean Corpuscular Hemoglobin 28 pg Mean Corpuscular Hemoglobin Concent 33 g/dL Red Cell Distribution Width 14.6 % Platelet Count 249 x10^3/uL Neutrophils (%) (Auto) 59 % Lymphocytes (%) (Auto) 25 % Monocytes (%) (Auto) 8 % Eosinophils (%) (Auto) 7 % Basophils (%) (Auto) 1 % Neutrophils # (Auto) 4.3 x10^3/uL Lymphocytes # (Auto) 1.8 x10^3/uL Monocytes # (Auto) 0.6 x10^3/uL Eosinophils # (Auto) 0.5 x10^3/uL Basophils # (Auto) 0.1 x10^3/uL Sodium Level 138 mmol/L Potassium Level 6.3 mmol/L Chloride Level 105 mmol/L Carbon Dioxide Level 22 mmol/L Anion Gap 11 Blood Urea Nitrogen 31 mg/dL Creatinine 1.2 mg/dL Estimated GFR (Cockcroft-Gault) 64.4 BUN/Creatinine Ratio 26 Glucose Level 94 mg/dL Calcium Level 9.1 mg/dL Magnesium Level 2.1 mg/dL Total Bilirubin 0.2 mg/dL Aspartate Amino Transf (AST/SGOT) 7 U/L Alanine Aminotransferase (ALT/SGPT) 24 U/L Alkaline Phosphatase 65 U/L Troponin I High Sensitivity < 4 ng/L Total Protein 7.2 g/dL Albumin 3.9 g/dL Albumin/Globulin Ratio 1.2 Current Medications Medications (Trade) Dose Ordered Sig/Silke Route PRN Reason Start Time Stop Time Status Last Admin Dose Admin Calcium Gluconate (Calcium Gluconate) 1,000 mg 1X ONCE IVP 01/04/22 15:30 01/04/22 15:34 DC Insulin Human Regular (HumuLIN R VIAL) 10 unit 1X ONCE IV 01/04/22 15:30 01/04/22 15:34 DC Dextrose (Dextrose 50%-Water Syringe) 25 gm 1X ONCE IV 01/04/22 15:30 01/04/22 15:34 DC Furosemide (Lasix) 40 mg 1X ONCE IVP 01/04/22 15:30 01/04/22 15:34 DC Sodium Polystyrene Sulfonate (Kayexalate) 30 gm 1X ONCE PO 01/04/22 15:30 01/04/22 15:34 DC Vital Signs: Vital Signs Date Time Temp Pulse Resp B/P (MAP) Pulse Ox O2 Delivery O2 Flow Rate FiO2 01/04/22 13:04 98.1 66 16 114/56 (75) 98 Room Air 98.1 EKG: EKG: EKG performed by ER staff at 1333 shows sinus rhythm with a rate of 65, patient does have a prolonged IN interval at 260, QTc is 373 he does have some peaked T waves, no STEMI read by Dr. maria[] Radiology/Procedures: Radiology/Procedures: [] Course & Med Decision Making: Course & Med Decision Making Pertinent Labs and Imaging studies reviewed. (See chart for details) [] Patient presents to the emergency department from his primary care provider for abnormal labs. Patient reports that he had a high potassium and some ab normalities in his renal function. Patient has no complaints in the emergency department. Work-up in the ER consisted of CBC, CMP, troponin and EKG. 1536: CBC unremarkable, potassium was 6.3, normal creatinine, negative troponin, blood sugar was 94, pH 7.3. Patient does have a prolonged IN interval and some peaked T waves on his EKG, patient will be given 10 mils of calcium gluconate, 10 units of insulin, 1 amp of D50, no need for bicarb as patient has normal pH, 40 mg of Lasix. Discussed with supervising physician and kayexalate was added. I discussed patient's case with Dr. Figueroa who agreed to admit the patient under his services for hyperkalemia. I discussed patient's findings with him as well as care plan he is agreeable at this time.ER bridge orders place 1551. Maddi Disclaimer: Maddi Disclaimer: This electronic medical record was generated, in whole or in part, using a voice recognition dictation system. Departure Departure Impression: Primary Impression: Hyperkalemia Disposition: ADMITTED INPATIENT Admitting Physician: JESSEE Condition: STABLE Referrals: NO PCP (PCP) ALLYSON BRENNER APRN Jan 04, 2022 13:53
[2022-01-04 13:58] LABS: BASO # 0.1 x10^3/uL (0.0-0.2); BASO % 1 % (0-3); EOS # 0.5 x10^3/uL (0.0-0.7); EOS % 7 % (0-3); HEMATOCRIT 34.8 % (39.0-53.0); HEMOGLOBIN 11.4 g/dL (13.0-17.5); LYMPH # 1.8 x10^3/uL (1.0-4.8); LYMPH % 25 % (24-48); MEAN CORPUSCULAR HEMOGLOBIN 28 pg (25-35); MEAN CORPUSCULAR HGB CONC 33 g/dL (31-37); MEAN CORPUSCULAR VOLUME 86 fL (79-100); MONO # 0.6 x10^3/uL (0.0-1.1); MONO % 8 % (0-9); NEUT # 4.3 x10^3/uL (1.8-7.7); NEUT % 59 % (31-73); PLATELET COUNT 249 x10^3/uL (140-400); RED BLOOD COUNT 4.04 x10^6/uL (4.30-5.70); RED CELL DISTRIBUTION WIDTH 14.6 % (11.5-14.5); WHITE BLOOD COUNT 7.3 x10^3/uL (4.0-11.0)
[2022-01-04 14:04] LABS: ALBUMIN 3.9 g/dL (3.4-5.0); ALBUMIN/GLOBULIN RATIO 1.2 (1.0-1.7); CALCIUM 9.1 mg/dL (8.5-10.1); CREATININE 1.2 mg/dL (0.7-1.3); GFR 64.4; TOTAL BILIRUBIN 0.2 mg/dL (0.2-1.0); TOTAL PROTEIN 7.2 g/dL (6.4-8.2)
[2022-01-04 14:07] LABS: POTASSIUM 6.3 mmol/L (3.5-5.1)
[2022-01-04] MEDS ORDERED: SODIUM POLYSTYRENE SULFON/SORB 15 GM/60 ML ORAL.SUSP. PO ONE (15:30)
[2022-01-04] MEDS ORDERED: INSULIN REGULAR 100 UNIT/ML 3ML VIAL. IV ONE (15:30)
[2022-01-04] MEDS ORDERED: CALCIUM GLUCONATE 1,000 MG/10 ML VIAL. IVP ONE (15:30)
[2022-01-04] MEDS ORDERED: FUROSEMIDE 40 MG/4 ML VIAL. IVP ONE (15:30)
[2022-01-04] MEDS ORDERED: DEXTROSE 50% 25 GM / 50ML DISP.SYRIN. IV ONE (15:30)
[2022-01-04] MEDS ORDERED: NITROGLYCERIN SUBLINGUAL 0.4 MG BOTTLE OF 25. SL PRN (16:00)
[2022-01-04] MEDS ORDERED: ONDANSETRON PF 4 MG/2 ML VIAL. IVP PRN (16:00)
[2022-01-04] MEDS ORDERED: SODIUM BICARB ADULT 8.4% 50 MEQ/50 ML DISP.SYRIN. IV ONE (16:00)
[2022-01-04] MEDS ORDERED: ACETAMINOPHEN 325 MG TABLET. PO PRN (16:00)
--- NOTE | 2022-01-04 16:00 | PDOC1 ---
History and Physical Date of Admission Date of Admission DATE: 01/04/22 TIME: 15:58 Identification/Chief Complaint Chief Complaint Abnormal labs Source Source: Patient History of Present Illness History of Present Illness Mr Capellan is a 51 yo male with PMHx asthma, morbid obesity, anxiety with depression, chronic lower back pain, HLD who comes to ED at the behest of his primary care office for elevated potassium on labs. He takes clonazepam 1 mg. 4 times daily, Lyrica 150 mg every morning and 300 mg nightly, lisinopril 40 mg daily, atorvastatin 10 mg nightly, Spiriva, Symbicort, clonidine 0.2 mg twice daily, Zanaflex 4 mg as needed 3 times daily, BuSpar 30 mg 3 times daily, Zoloft 100 mg 3 times daily, Aldactone 100 mg daily, verapamil 480 mg daily, potassium 10 mEq daily, albuterol as needed, furosemide 40 mg daily, carvedilol 6.25 mg twice daily, Singulair 10 mg nightly. Apparently he was told to stop taking his potassium supplementation instead he stopped taking his furosemide at home. He goes to the [facility] clinic for primary care and does see a psychiatrist outpatient as well. Labs with WBC 7.3, Hb 11.4, platelets 249, NA 138, K6.3, BUN 31, CR 1.2, glucose 94, calcium 9.1, magnesium 2.1, LFTs are normal laboratory limits, high- sensitivity troponin is less than 4, albumin 3.9 EKG sinus rhythm rate of 65 bpm first-degree heart block [place] interval 260, some peaking of T waves no T WI or ST elevation. QTc 373. Given bicarbonate and insulin dextrose Kayexalate and admitted for further care on telemetry monitoring Past Medical History Cardiovascular: HTN, Other Pulmonary: Asthma, COPD CENTRAL NERVOUS SYSTEM: Other GI: GERD Heme/Onc: No pertinent hx Hepatobiliary: Other Psych: No pertinent hx Musculoskeletal: Osteoarthritis, Other Rheumatologic: No pertinent hx Infectious disease: No pertinent hx Renal/: Other Endocrine: No pertinent hx Past Surgical History Past Surgical History: No pertinent history Family History Family History: Heart Disease Social History Smoke: 1 pack per day ALCOHOL: none Drugs: Marijuana (DELTA 8/DELTA 9 THC) Current Problem List Problem List Problems Medical Problems: (1) Hyperkalemia Status: Acute Current Medications Current Medications Current Medications Calcium Gluconate (Calcium Gluconate) 1,000 mg 1X ONCE IVP ; Start 01/04/22 at 15:30; Stop 01/04/22 at 15:34; Status DC Insulin Human Regular (HumuLIN R VIAL) 10 unit 1X ONCE IV ; Start 01/04/22 at 15:30; Stop 01/04/22 at 15:34; Status DC Dextrose (Dextrose 50%-Water Syringe) 25 gm 1X ONCE IV ; Start 01/04/22 at 15:30; Stop 01/04/22 at 15:34; Status DC Furosemide (Lasix) 40 mg 1X ONCE IVP ; Start 01/04/22 at 15:30; Stop 01/04/22 at 15:34; Status DC Sodium Polystyrene Sulfonate (Kayexalate) 30 gm 1X ONCE PO ; Start 01/04/22 at 15:30; Stop 01/04/22 at 15:34; Status DC Sodium Bicarbonate (Sodium Bicarb Adult 8.4% Syr) 50 meq 1X ONCE IV ; Start 01/04/22 at 16:00; Stop 01/04/22 at 16:01; Status UNV Active Scripts Active Cefpodoxime Proxetil 200 Mg Tablet 1 Tab PO BID Prednisone (Prednisone) 10 Mg Tablet 10 Mg PO UD Take 5 tablets by mouth daily for 2 days, then take 4 tablets by mouth daily for 2 days, then take 3 tablets by mouth daily for 2 days, then take 2 tablets by mouth daily for 2 days, then take 1 tablets by mouth daily for 2 days, then stop. [Fluconazole] 100 MG Tablet 200 Mg PO DAILY 7 Days Reported Tramadol Hcl 50 Mg Tablet 100 Mg PO TID PRN Clonazepam 1 Mg Tablet 1 Mg PO NOON Clonazepam 1 Mg Tablet 1 Mg PO QID Zoloft (Sertraline Hcl) 100 Mg Tablet 3 Tab PO DAILY Cyclobenzaprine Hcl 10 Mg Tablet 1 Tab PO QHS Tizanidine Hcl 4 Mg Tablet 1 Tab PO TID Cetirizine Hcl 10 Mg Tablet 10 Mg PO DAILY [verapamil] 120 Mg PO TID Voltaren (Diclofenac Sodium) 100 Gm Gel..gram. 1 Gm TP QID Gabapentin 800 Mg Tablet 800 Mg PO TID Carvedilol (Carvedilol) 6.25 Mg Tablet 1 Tab PO BID Atorvastatin Calcium 10 Mg Tablet 1 Tab PO DAILY Ibuprofen 800 Mg Tablet 800 Mg PO TID PRN Famotidine 40 Mg Tablet 40 Mg PO DAILY Montelukast Sodium Tablet (Montelukast Sodium) 10 Mg Tablet 10 Mg PO HS Symbicort 160-4.5 Mcg Inhaler (Budesonide/Formoterol Fumarate) 10.2 Gm Hfa.aer.ad 2 Puff IH BID Spiriva (Tiotropium [place]) 18 Mcg Cap.w.dev 1 Cap IH DAILY Aspirin 325 Mg Tablet 1 Tab PO DAILY Buspirone Hcl 30 Mg Tablet 1 Tab PO TID Albuterol Sulfate Neb Soln (Albuterol Sulfate) 1.25 Mg/3 Ml Vial.neb 1.25 Mg NEB Q4HRS PRN Spironolactone 50 Mg Tablet 2 Tab PO DAILY Lisinopril 20 Mg Tablet 2 Tab PO DAILY Clonidine Hcl 0.2 Mg Tablet 1 Tab PO BID Allergies Allergies: Coded Allergies: Sulfa (Sulfonamide Antibiotics) (Verified Allergy, Intermediate, Itching, 01/08/16) clindamycin (Verified Allergy, Intermediate, Rash, 05/30/19) codeine (Verified Allergy, Intermediate, Itching, 01/08/16) morphine (Verified Allergy, Intermediate, Itching, 01/08/16) ROS General: No: Chills, Night Sweats, Fatigue, Malaise, Appetite, Other PSYCHOLOGICAL ROS: YES: Anxiety, Depression, Sleep disturbances; No: Behavioral Disorder, Concentration difficultie, Decreased libido, Disorientation, Hallucinations, Hostility, Irritablity, Memory difficulties, Mood Swings, Obsessive thoughts, Physical abuse, Sexual abuse, Suicidal ideation, Other Eyes: No Blurry vision, No Decreased vision, No Double vision, No Dry eyes, No Excessive tearing, No Eye Pain, No Itchy Eyes, No Loss of vision, No Photophobia, No Scotomata, No Uses contacts, No Uses glasses, No Other HEENT: No: Heacaches, Visual Changes, Hearing change, Nasal congestion, Nasal discharge, Oral lesions, Sinus pain, Sore Throat, Epistaxis, Sneezing, Snoring, Tinnitus, Vertigo, Vocal changes, Other ALLERGY AND IMMUNOLOGY: No: Hives, Insect Bite Sensitivity, Itchy/Watery Eyes, Nasal Congestion, Post Nasal Drip, Seasonal Allergies, Other Hematological and Lymphatic: No: Bleeding Problems, Blood Clots, Blood Transfusions, Brusing, Night Sweats, Pallor, Swollen Lymph Nodes, Other ENDOCRINE: No: Breast Changes, Galactorrhea, Hair Pattern Changes, Hot Flashes, Malaise/lethargy, Mood Swings, Palpitations, Polydipsia/polyuria, Skin Changes, Temperature Intolerance, Unexpected Weight Changes, Other Breast: No New/Changing Breast Lumps, No Nipple changes, No Nipple discharge, No Other Respiratory: No: Cough, Hemoptysis, Orthopnea, Pleuritic Pain, Shortness of breath, SOB with excertion, Sputum Changes, Stridor, Tachypnea, Wheezing, Other Cardiovascular: No Chest Pain, No Palpitations, No Orthopnea, No Paroxysmal Noc. Dyspnea, No Edema, No Lt Headedness, No Other Gastrointestinal: No Nausea, No Vomiting, No Abdominal Pain, No Diarrhea, No Constipation, No Melena, No Hematochezia, No Other Genitourinary: No Dysuria, No Frequency, No Incontinence, No Hematuria, No Retention, No Discharge, No Urgency, No Pain, No Flank Pain, No Other, No , No , No , No , No , No , No Musculoskeletal: Yes Gait Disturbance, Yes Joint Pain; No Joint Stiffness, No Joint Swelling, No Muscle Pain, No Muscular Weakness, No Pain In:, No Swelling In:, No Other Neurological: No Behavorial Changes, No Bowel/Bladder ControlChng, No Confusion, No Dizziness, No Gait Disturbance, No Headaches, No Impaired Coord/balance, No Memory Loss, No Numbness/Tingling, No Seizures, No Speech Problems, No Tremors, No Visual Changes, No Weakness, No Other Skin: No Dry Skin, No Eczema, No Hair Changes, No Lumps, No Mole Changes, No Mottling, No Nail Changes, No Pruritus, No Rash, No Skin Lesion Changes, No Other, No Acne Physical Exam General: Alert, Oriented X3, Cooperative, No acute distress HEENT: PERRLA Lungs: Clear to auscultation, Normal air movement Heart: S1S2, RRR, no thrills, no rubs, no gallops, no murmurs Abdomen: Normal bowel sounds, Soft, No tenderness, No hepatosplenomegaly, No masses Rectal Exam: not examined Extremities: No clubbing, No cyanosis, No edema, Normal pulses, No tenderness/swelling Skin: No rashes, No breakdown, No significant lesion Neuro: Normal gait, Normal speech, Strength at 5/5 X4 ext, Normal tone, Sensation intact, Cranial nerves 3-12 NL, Reflexes 2+ Psych/Mental Status: Mental status NL, Mood NL Vitals Vitals Vital Signs Date Time Temp Pulse Resp B/P (MAP) Pulse Ox O2 Delivery O2 Flow Rate FiO2 01/04/22 13:04 98.1 66 16 114/56 (75) 98 Room Air 98.1 Labs Labs Laboratory Tests Test 01/04/22 13:35 White Blood Count 7.3 x10^3/uL (4.0-11.0) Red Blood Count 4.04 x10^6/uL (4.30-5.70) Hemoglobin 11.4 g/dL (13.0-17.5) Hematocrit 34.8 % (39.0-53.0) Mean Corpuscular Volume 86 fL (79-100) Mean Corpuscular Hemoglobin 28 pg (25-35) Mean Corpuscular Hemoglobin Concent 33 g/dL (31-37) Red Cell Distribution Width 14.6 % (11.5-14.5) Platelet Count 249 x10^3/uL (140-400) Neutrophils (%) (Auto) 59 % (31-73) Lymphocytes (%) (Auto) 25 % (24-48) Monocytes (%) (Auto) 8 % (0-9) Eosinophils (%) (Auto) 7 % (0-3) Basophils (%) (Auto) 1 % (0-3) Neutrophils # (Auto) 4.3 x10^3/uL (1.8-7.7) Lymphocytes # (Auto) 1.8 x10^3/uL (1.0-4.8) Monocytes # (Auto) 0.6 x10^3/uL (0.0-1.1) Eosinophils # (Auto) 0.5 x10^3/uL (0.0-0.7) Basophils # (Auto) 0.1 x10^3/uL (0.0-0.2) Sodium Level 138 mmol/L (136-145) Potassium Level 6.3 mmol/L (3.5-5.1) Chloride Level 105 mmol/L (98-107) Carbon Dioxide Level 22 mmol/L (21-32) Anion Gap 11 (6-14) Blood Urea Nitrogen 31 mg/dL (8-26) Creatinine 1.2 mg/dL (0.7-1.3) Estimated GFR (Cockcroft-Gault) 64.4 BUN/Creatinine Ratio 26 (6-20) Glucose Level 94 mg/dL (70-99) Calcium Level 9.1 mg/dL (8.5-10.1) Magnesium Level 2.1 mg/dL (1.8-2.4) Total Bilirubin 0.2 mg/dL (0.2-1.0) Aspartate Amino Transf (AST/SGOT) 7 U/L (15-37) Alanine Aminotransferase (ALT/SGPT) 24 U/L (16-63) Alkaline Phosphatase 65 U/L (46-116) Troponin I High Sensitivity < 4 ng/L (4-75) Total Protein 7.2 g/dL (6.4-8.2) Albumin 3.9 g/dL (3.4-5.0) Albumin/Globulin Ratio 1.2 (1.0-1.7) Laboratory Tests Test 01/04/22 13:35 White Blood Count 7.3 x10^3/uL (4.0-11.0) Red Blood Count 4.04 x10^6/uL (4.30-5.70) Hemoglobin 11.4 g/dL (13.0-17.5) Hematocrit 34.8 % (39.0-53.0) Mean Corpuscular Volume 86 fL (79-100) Mean Corpuscular Hemoglobin 28 pg (25-35) Mean Corpuscular Hemoglobin Concent 33 g/dL (31-37) Red Cell Distribution Width 14.6 % (11.5-14.5) Platelet Count 249 x10^3/uL (140-400) Neutrophils (%) (Auto) 59 % (31-73) Lymphocytes (%) (Auto) 25 % (24-48) Monocytes (%) (Auto) 8 % (0-9) Eosinophils (%) (Auto) 7 % (0-3) Basophils (%) (Auto) 1 % (0-3) Neutrophils # (Auto) 4.3 x10^3/uL (1.8-7.7) Lymphocytes # (Auto) 1.8 x10^3/uL (1.0-4.8) Monocytes # (Auto) 0.6 x10^3/uL (0.0-1.1) Eosinophils # (Auto) 0.5 x10^3/uL (0.0-0.7) Basophils # (Auto) 0.1 x10^3/uL (0.0-0.2) Sodium Level 138 mmol/L (136-145) Potassium Level 6.3 mmol/L (3.5-5.1) Chloride Level 105 mmol/L (98-107) Carbon Dioxide Level 22 mmol/L (21-32) Anion Gap 11 (6-14) Blood Urea Nitrogen 31 mg/dL (8-26) Creatinine 1.2 mg/dL (0.7-1.3) Estimated GFR (Cockcroft-Gault) 64.4 BUN/Creatinine Ratio 26 (6-20) Glucose Level 94 mg/dL (70-99) Calcium Level 9.1 mg/dL (8.5-10.1) Magnesium Level 2.1 mg/dL (1.8-2.4) Total Bilirubin 0.2 mg/dL (0.2-1.0) Aspartate Amino Transf (AST/SGOT) 7 U/L (15-37) Alanine Aminotransferase (ALT/SGPT) 24 U/L (16-63) Alkaline Phosphatase 65 U/L (46-116) Troponin I High Sensitivity < 4 ng/L (4-75) Total Protein 7.2 g/dL (6.4-8.2) Albumin 3.9 g/dL (3.4-5.0) Albumin/Globulin Ratio 1.2 (1.0-1.7) VTE Prophylaxis Ordered VTE Prophylaxis Devices: No VTE Pharmacological Prophylaxi: Yes Assessment/Plan Assessment/Plan Hyperkalemia - likely due to lisinopril, spironolactone and potassium supplementation. Will hold meds. Given sodium bicarb, insulin, D50 Morbid obesity - counseled on weight loss, lifestyle modification Hyperlipidemia - cont statin Hypertension - on coreg, lisinopril, aldactone, will cont coreg, hold others Anxiety, depression, panic disorder - cont home meds Right hip pain -we will give topical Voltaren. back off on ibuprofen for now Chronic lower back pain -currently taking ibuprofen 3 times daily was previously taking tramadol which was stopped over a year ago. He is not interested in physical therapy or aquatic therapy discussed in depth Asthma - cont nebs prn, singulair FEN - low k diet PPX - heparin FULL CODE dispo - obs for hyperkalemia Justifications for Admission Other Justification ALESHA JIMENEZ MD Jan 04, 2022 16:00
[2022-01-04] MEDS: HEPARIN for SUB-Q USE 5,000 UNIT/ML VIAL. SQ SCH ×2 (16:26→21:13)
[2022-01-04] MEDS ORDERED: IV DEXTROSE 5% 500 ML IV ONE (16:30)
[2022-01-04 17:39] VITALS: BP 91/58
[2022-01-04] MEDS ORDERED: diphenhydrAMINE HCL 25 MG CAPSULE PO PRN (18:45)
[2022-01-04 19:00] VITALS: BP 122/59
[2022-01-04] MEDS ORDERED: TIOT18CA IH (19:01)
[2022-01-04] MEDS ORDERED: ASPI325T8 PO (19:01)
[2022-01-04] MEDS ORDERED: POTA-112 PO (19:01)
[2022-01-04] MEDS ORDERED: BUDE10.2 IH (19:01)
[2022-01-04] MEDS ORDERED: IPRA4AER IH (19:01)
[2022-01-04] MEDS ORDERED: MONT10TA49 PO (19:01)
[2022-01-04] MEDS ORDERED: CLON0.2T PO (19:01)
[2022-01-04] MEDS ORDERED: VERA240C4 PO (19:01)
[2022-01-04] MEDS ORDERED: CLONAZEPAM1 MG PO ×2 (19:01)
[2022-01-04] MEDS ORDERED: FURO-68 PO (19:01)
[2022-01-04] MEDS ORDERED: CARV6.2511 PO (19:01)
[2022-01-04] MEDS ORDERED: DICL20GE TP (19:01)
[2022-01-04] MEDS ORDERED: SPIR100T4 PO (19:01)
[2022-01-04] MEDS ORDERED: LISI-130 PO (19:01)
[2022-01-04] MEDS ORDERED: PREG150C PO ×2 (19:01)
[2022-01-04] MEDS ORDERED: ALBU2.5V8 IH (19:01)
[2022-01-04] MEDS ORDERED: BUSP30TA PO (19:01)
[2022-01-04] MEDS ORDERED: ATOR10TA60 PO (19:01)
[2022-01-04] MEDS ORDERED: ALBU2.5V14 NEB (19:01)
[2022-01-04] MEDS ORDERED: TIZA-75 PO (19:01)
[2022-01-04] MEDS ORDERED: SERT100T PO (19:01)
[2022-01-04] MEDS ORDERED: tiZANidine 4 MG TABLET. PO PRN (19:15)
[2022-01-04] MEDS: busPIRone 10 MG TABLET. PO SCH (20:51)
[2022-01-04] MEDS: VERAPAMIL 40 MG TABLET. PO SCH (20:52)
[2022-01-04] MEDS: cloNIDine HCL 0.2 MG TABLET PO SCH (20:52)
[2022-01-04] MEDS: clonazePAM 0.5 MG TABLET PO SCH (20:53)
[2022-01-04] MEDS: ALBUTEROL SULFATE 2.5 MG/3 ML NEBU. NEB SCH (20:57)
[2022-01-04] MEDS: BUDESONIDE 0.5 MG/2 ML NEBU. NEB SCH (20:57)
[2022-01-04] MEDS ORDERED: NON FORMULARY ITEM (Budesonide/Formoterol Fumarate (Symbicort 160-4.5 Mcg Inhaler) 2 PUFF) IH SCH (21:00)
[2022-01-04] MEDS ORDERED: PSYLLIUM HUSK (SUGAR FREE) 1 PKT PACKET PO SCH (21:00)
[2022-01-04] MEDS ORDERED: MONTELUKAST SODIUM 10 MG TABLET. PO SCH (21:00)
[2022-01-04] MEDS ORDERED: PREGABALIN 75 MG CAPSULE PO SCH (21:00)
[2022-01-04] MEDS: DICLOFENAC SODIUM 1% TOPICAL GEL 100GM TUBE. TP SCH (21:07)
[2022-01-04] MEDS: NICOTINE POLACRILEX 2MG GUM PACKAGE of 12. BC PRN (21:07)
[2022-01-04 23:00] VITALS: BP 118/55
[2022-01-05] MEDS ORDERED: NON FORMULARY ITEM (Albuterol Sulfate (Albuterol Sulfate Conc Neb Soln) 1 VIAL) NEB SCH
[2022-01-05 02:05] VITALS: BP 106/50
[2022-01-05] MEDS: NICOTINE POLACRILEX 2MG GUM PACKAGE of 12. BC PRN (05:13)
[2022-01-05] MEDS: HEPARIN for SUB-Q USE 5,000 UNIT/ML VIAL. SQ SCH (05:14)
[2022-01-05 06:53] LABS: BASO # 0.1 x10^3/uL (0.0-0.2); BASO % 1 % (0-3); EOS # 0.5 x10^3/uL (0.0-0.7); EOS % 6 % (0-3); HEMATOCRIT 35.2 % (39.0-53.0); HEMOGLOBIN 11.4 g/dL (13.0-17.5); LYMPH # 1.9 x10^3/uL (1.0-4.8); LYMPH % 25 % (24-48); MEAN CORPUSCULAR HEMOGLOBIN 28 pg (25-35); MEAN CORPUSCULAR HGB CONC 32 g/dL (31-37); MEAN CORPUSCULAR VOLUME 87 fL (79-100); MONO # 0.8 x10^3/uL (0.0-1.1); MONO % 10 % (0-9); NEUT # 4.5 x10^3/uL (1.8-7.7); NEUT % 59 % (31-73); PLATELET COUNT 234 x10^3/uL (140-400); RED BLOOD COUNT 4.04 x10^6/uL (4.30-5.70); RED CELL DISTRIBUTION WIDTH 14.3 % (11.5-14.5); WHITE BLOOD COUNT 7.7 x10^3/uL (4.0-11.0)
[2022-01-05 07:00] VITALS: BP 110/55
[2022-01-05 07:01] LABS: ALBUMIN 3.7 g/dL (3.4-5.0); ALBUMIN/GLOBULIN RATIO 1.1 (1.0-1.7); CREATININE 1.2 mg/dL (0.7-1.3); GFR 64.4; POTASSIUM 4.5 mmol/L (3.5-5.1); TOTAL BILIRUBIN 0.3 mg/dL (0.2-1.0); TOTAL PROTEIN 7.1 g/dL (6.4-8.2)
[2022-01-05] MEDS: ALBUTEROL SULFATE 2.5 MG/3 ML NEBU. NEB SCH ×2 (07:10→12:43)
[2022-01-05] MEDS: BUDESONIDE 0.5 MG/2 ML NEBU. NEB SCH (07:10)
--- NOTE | 2022-01-05 07:53 | EKG ---
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
[2022-01-05] MEDS ORDERED: CARVEDILOL 6.25 MG TABLET. PO SCH (08:00)
[2022-01-05] MEDS: VERAPAMIL 40 MG TABLET. PO SCH (08:48)
[2022-01-05] MEDS: busPIRone 10 MG TABLET. PO SCH (08:49)
[2022-01-05] MEDS: clonazePAM 0.5 MG TABLET PO SCH (08:50)
[2022-01-05] MEDS: DICLOFENAC SODIUM 1% TOPICAL GEL 100GM TUBE. TP SCH (08:51)
[2022-01-05] MEDS: cloNIDine HCL 0.2 MG TABLET PO SCH (08:51)
[2022-01-05] MEDS ORDERED: FAMOTIDINE 20 MG TABLET. PO SCH (09:00)
[2022-01-05] MEDS ORDERED: NON FORMULARY ITEM (Tiotropium Bromide (Spiriva) 1 CAP) IH SCH (09:00)
[2022-01-05] MEDS ORDERED: ATORVASTATIN CALCIUM 10 MG TABLET. PO SCH (09:00)
[2022-01-05] MEDS ORDERED: ASPIRIN 325 MG TABLET PO SCH (09:00)
[2022-01-05] MEDS ORDERED: FUROSEMIDE 40 MG TABLET. PO SCH (09:00)
[2022-01-05] MEDS ORDERED: PREGABALIN 75 MG CAPSULE PO SCH (09:00)
[2022-01-05] MEDS ORDERED: SERTRALINE 50 MG TABLET. PO SCH (09:00)
[2022-01-05 11:00] VITALS: BP 121/58
--- NOTE | 2022-01-05 11:59 | PDOC ---
[employer]GRESS NOTE Date of Service DOS: DATE: 01/05/22 TIME: 11:56 Chief Complaint Chief Complaint Hyperkalemia - likely due to lisinopril, spironolactone and potassium s upplementation. Will hold meds. Given sodium bicarb, insulin, D50 Morbid obesity - counseled on weight loss, lifestyle modification Hyperlipidemia - cont statin Hypertension - on coreg, lisinopril, aldactone, will cont coreg, hold others Anxiety, depression, panic disorder - cont home meds Right hip pain -we will give topical Voltaren. back off on ibuprofen for now Chronic lower back pain -currently taking ibuprofen 3 times daily was previously taking tramadol which was stopped over a year ago. He is not interested in physical therapy or aquatic therapy discussed in depth Asthma - cont nebs prn, singulair Lower extremity edema - likely venous insufficiency with morbid obesity. multiple BNP levels rule out CHF as diagnosis Likely CKDI - will have outpatient referral FEN - low k diet PPX - heparin FULL CODE dispo - obs for hyperkalemia History of Present Illness History of Present Illness Mr Capellan is a 51 yo male with PMHx asthma, morbid obesity, anxiety with depression, chronic lower back pain, HLD who comes to ED at the behest of his primary care office for elevated potassium on labs. He takes clonazepam 1 mg. 4 times daily, Lyrica 150 mg every morning and 300 mg nightly, lisinopril 40 mg daily, atorvastatin 10 mg nightly, Spiriva, Symbicort, clonidine 0.2 mg twice daily, Zanaflex 4 mg as needed 3 times daily, BuSpar 30 mg 3 times daily, Zoloft 100 mg 3 times daily, Aldactone 100 mg daily, verapamil 480 mg daily, potassium 10 mEq daily, albuterol as needed, furosemide 40 mg daily, carvedilol 6.25 mg twice daily, Singulair 10 mg nightly. Apparently he was told to stop taking his potassium supplementation instead he stopped taking his furosemide at home. He goes to the [facility] clinic for primary care and does see a psychiatrist outpatient as well. Labs with WBC 7.3, Hb 11.4, platelets 249, NA 138, K6.3, BUN 31, CR 1.2, glucose 94, calcium 9.1, magnesium 2.1, LFTs are normal laboratory limits, high- sensitivity troponin is less than 4, albumin 3.9 EKG sinus rhythm rate of 65 bpm first-degree heart block [place] interval 260, some peaking of T waves no T WI or ST elevation. QTc 373. Given bicarbonate and insulin dextrose Kayexalate and admitted for further care on telemetry monitoring 01/05: Overnight no telemetry events. Potassium improved 4.5. Creatinine stable 1.2. No chest pain or shortness of breath. He does note family history of chronic kidney disease and has never been seen by dinkey mechanic. He would like to have referral to one outpatient. I have advised to hold lisinopril spironolactone and potassium supplements and only to take furosemide sparingly until he is evaluated by nephrology. Vitals/I&O Vitals/I&O: Vital Signs Date Time Temp Pulse Resp B/P (MAP) Pulse Ox O2 Delivery O2 Flow Rate FiO2 01/05/22 08:51 67 110/55 01/05/22 08:00 Room Air 01/05/22 07:10 100 01/05/22 07:00 98.1 16 98.1 I & O 01/04/22 01/04/22 01/05/22 15:00 23:00 07:00 Intake Total 500 ml 200 ml Output Total 1050 ml Balance 500 ml -850 ml Physical Exam General: Alert, Oriented X3, Cooperative, No acute distress Lungs: Clear Abdomen: Normal bowel sounds, Soft, No tenderness, No hepatosplenomegaly, No masses Extremities: No clubbing, No cyanosis, No edema, Normal pulses, No tenderness/swelling Skin: No rashes, No breakdown, No significant lesion Labs Labs: Laboratory Tests Test 01/04/22 13:35 01/04/22 20:20 01/05/22 06:30 White Blood Count 7.3 x10^3/uL (4.0-11.0) 7.7 x10^3/uL (4.0-11.0) Red Blood Count 4.04 x10^6/uL (4.30-5.70) 4.04 x10^6/uL (4.30-5.70) Hemoglobin 11.4 g/dL (13.0-17.5) 11.4 g/dL (13.0-17.5) Hematocrit 34.8 % (39.0-53.0) 35.2 % (39.0-53.0) Mean Corpuscular Volume 86 fL (79-100) 87 fL (79-100) Mean Corpuscular Hemoglobin 28 pg (25-35) 28 pg (25-35) Mean Corpuscular Hemoglobin Concent 33 g/dL (31-37) 32 g/dL (31-37) Red Cell Distribution Width 14.6 % (11.5-14.5) 14.3 % (11.5-14.5) Platelet Count 249 x10^3/uL (140-400) 234 x10^3/uL (140-400) Neutrophils (%) (Auto) 59 % (31-73) 59 % (31-73) Lymphocytes (%) (Auto) 25 % (24-48) 25 % (24-48) Monocytes (%) (Auto) 8 % (0-9) 10 % (0-9) Eosinophils (%) (Auto) 7 % (0-3) 6 % (0-3) Basophils (%) (Auto) 1 % (0-3) 1 % (0-3) Neutrophils # (Auto) 4.3 x10^3/uL (1.8-7.7) 4.5 x10^3/uL (1.8-7.7) Lymphocytes # (Auto) 1.8 x10^3/uL (1.0-4.8) 1.9 x10^3/uL (1.0-4.8) Monocytes # (Auto) 0.6 x10^3/uL (0.0-1.1) 0.8 x10^3/uL (0.0-1.1) Eosinophils # (Auto) 0.5 x10^3/uL (0.0-0.7) 0.5 x10^3/uL (0.0-0.7) Basophils # (Auto) 0.1 x10^3/uL (0.0-0.2) 0.1 x10^3/uL (0.0-0.2) Sodium Level 138 mmol/L (136-145) 139 mmol/L (136-145) Potassium Level 6.3 mmol/L (3.5-5.1) 4.5 mmol/L (3.5-5.1) Chloride Level 105 mmol/L (98-107) 104 mmol/L (98-107) Carbon Dioxide Level 22 mmol/L (21-32) 25 mmol/L (21-32) Anion Gap 11 (6-14) 10 (6-14) Blood Urea Nitrogen 31 mg/dL (8-26) 28 mg/dL (8-26) Creatinine 1.2 mg/dL (0.7-1.3) 1.2 mg/dL (0.7-1.3) Estimated GFR (Cockcroft-Gault) 64.4 64.4 BUN/Creatinine Ratio 26 (6-20) 23 (6-20) Glucose Level 94 mg/dL (70-99) 94 mg/dL (70-99) Calcium Level 9.1 mg/dL (8.5-10.1) 9.0 mg/dL (8.5-10.1) Magnesium Level 2.1 mg/dL (1.8-2.4) Total Bilirubin 0.2 mg/dL (0.2-1.0) 0.3 mg/dL (0.2-1.0) Aspartate Amino Transf (AST/SGOT) 7 U/L (15-37) 8 U/L (15-37) Alanine Aminotransferase (ALT/SGPT) 24 U/L (16-63) 24 U/L (16-63) Alkaline Phosphatase 65 U/L (46-116) 65 U/L (46-116) Troponin I High Sensitivity < 4 ng/L (4-75) OH-Vin-G-Type Natriuretic Peptide 22 pg/mL (0-124) Total Protein 7.2 g/dL (6.4-8.2) 7.1 g/dL (6.4-8.2) Albumin 3.9 g/dL (3.4-5.0) 3.7 g/dL (3.4-5.0) Albumin/Globulin Ratio 1.2 (1.0-1.7) 1.1 (1.0-1.7) Glucose (Fingerstick) 99 mg/dL (70-99) Assessment and Plan Assessmemt and Plan Problems Medical Problems: (1) Hyperkalemia Status: Acute Comment Review of Relevant I have reviewed the following items abdulaziz (where applicable) has been applied. Medications: Current Medications Medications (Trade) Dose Ordered Sig/Silke Route PRN Reason Start Time Stop Time Status Last Admin Dose Admin Calcium Gluconate (Calcium Gluconate) 1,000 mg 1X ONCE IVP 01/04/22 15:30 01/04/22 15:34 DC 01/04/22 16:21 Insulin Human Regular (HumuLIN R VIAL) 10 unit 1X ONCE IV 01/04/22 15:30 01/04/22 15:34 DC 01/04/22 16:24 Furosemide (Lasix) 40 mg 1X ONCE IVP 01/04/22 15:30 01/04/22 15:34 DC 01/04/22 16:22 Sodium Polystyrene Sulfonate (Kayexalate) 30 gm 1X ONCE PO 01/04/22 15:30 01/04/22 15:34 DC 01/04/22 16:29 Sodium Bicarbonate (Sodium Bicarb Adult 8.4% Syr) 50 meq 1X ONCE IV 01/04/22 16:00 01/04/22 16:04 DC 01/04/22 16:29 Acetaminophen (Tylenol) 650 mg PRN Q6HRS PRN PO MILD PAIN / TEMP > 100.3'F 01/04/22 16:00 01/05/22 05:13 Heparin Sodium (Porcine) (Heparin Sodium) 5,000 unit Q8HRS SQ 01/04/22 16:00 01/05/22 05:14 Dextrose 500 ml @ 1,000 mls/hr 1X ONCE IV 01/04/22 16:30 01/04/22 17:00 DC 01/04/22 16:30 Diclofenac Sodium (Voltaren) 1 saul BID TP 01/04/22 21:00 01/05/22 08:51 Nicotine Polacrilex (Nicorette Gum) 1 each PRN Q1HR PRN BC SMOKING CESSATION 01/04/22 19:15 01/05/22 05:13 Aspirin (Sumit Aspirin) 325 mg DAILY PO 01/05/22 09:00 01/05/22 08:50 Atorvastatin Calcium (Lipitor) 10 mg DAILY PO 01/05/22 09:00 01/05/22 08:49 Carvedilol (Coreg) 6.25 mg BIDWMEALS PO 01/05/22 08:00 01/05/22 08:50 Furosemide (Lasix) 40 mg DAILY PO 01/05/22 09:00 01/05/22 08:50 Montelukast Sodium (Singulair) 10 mg HS PO 01/04/22 21:00 01/04/22 20:53 Buspirone HCl (Buspar) 30 mg BID PO 01/04/22 21:00 01/05/22 08:49 Clonazepam (KlonoPIN) 2 mg BID PO 01/04/22 21:00 01/05/22 08:50 Famotidine (Pepcid) 40 mg DAILY PO 01/05/22 09:00 01/05/22 08:50 Pregabalin (Lyrica) 150 mg DAILY PO 01/05/22 09:00 01/05/22 08:49 Pregabalin (Lyrica) 300 mg QHS PO 01/04/22 21:00 01/04/22 20:53 Sertraline HCl (Zoloft) 300 mg DAILY PO 01/05/22 09:00 01/05/22 08:48 Verapamil HCl (Calan) 160 mg TID PO 01/04/22 21:00 01/05/22 08:48 Albuterol Sulfate (Ventolin Neb Soln) 2.5 mg RTQID NEB 01/04/22 20:00 01/05/22 07:10 Budesonide (Pulmicort) 0.5 mg RTBID NEB 01/04/22 20:00 01/05/22 07:10 Justifications for Admission Other Justification ALESHA JIMENEZ MD Jan 05, 2022 11:59
[2022-01-05] MEDS ORDERED: clonazePAM 0.5 MG TABLET PO SCH (12:00)
--- NOTE | 2022-01-05 12:00 | PDOC3 ---
Discharge Summary Visit Information Date of Admission: Jan 04, 2022 Date of Discharge: Jan 05, 2022 Admitting Diagnosis: Hyperkalemia Final Diagnosis Problems Medical Problems: (1) Hyperkalemia Status: Acute Brief Hospital Course Allergies Allergies Coded Allergies Type Severity Reaction Last Updated Verified Sulfa (Sulfonamide Antibiotics) Allergy Intermediate Itching 01/08/16 Yes clindamycin Allergy Intermediate Rash 05/30/19 Yes codeine Allergy Intermediate Itching 01/08/16 Yes morphine Allergy Intermediate Itching 01/08/16 Yes Vital Signs Vital Signs Date Time Temp Pulse Resp B/P (MAP) Pulse Ox O2 Delivery O2 Flow Rate FiO2 01/05/22 08:51 67 110/55 01/05/22 08:00 Room Air 01/05/22 07:10 100 01/05/22 07:00 98.1 16 98.1 Lab Results Laboratory Tests Test 01/04/22 13:35 01/04/22 20:20 01/05/22 06:30 White Blood Count 7.3 x10^3/uL (4.0-11.0) 7.7 x10^3/uL (4.0-11.0) Red Blood Count 4.04 x10^6/uL (4.30-5.70) 4.04 x10^6/uL (4.30-5.70) Hemoglobin 11.4 g/dL (13.0-17.5) 11.4 g/dL (13.0-17.5) Hematocrit 34.8 % (39.0-53.0) 35.2 % (39.0-53.0) Mean Corpuscular Volume 86 fL (79-100) 87 fL (79-100) Mean Corpuscular Hemoglobin 28 pg (25-35) 28 pg (25-35) Mean Corpuscular Hemoglobin Concent 33 g/dL (31-37) 32 g/dL (31-37) Red Cell Distribution Width 14.6 % (11.5-14.5) 14.3 % (11.5-14.5) Platelet Count 249 x10^3/uL (140-400) 234 x10^3/uL (140-400) Neutrophils (%) (Auto) 59 % (31-73) 59 % (31-73) Lymphocytes (%) (Auto) 25 % (24-48) 25 % (24-48) Monocytes (%) (Auto) 8 % (0-9) 10 % (0-9) Eosinophils (%) (Auto) 7 % (0-3) 6 % (0-3) Basophils (%) (Auto) 1 % (0-3) 1 % (0-3) Neutrophils # (Auto) 4.3 x10^3/uL (1.8-7.7) 4.5 x10^3/uL (1.8-7.7) Lymphocytes # (Auto) 1.8 x10^3/uL (1.0-4.8) 1.9 x10^3/uL (1.0-4.8) Monocytes # (Auto) 0.6 x10^3/uL (0.0-1.1) 0.8 x10^3/uL (0.0-1.1) Eosinophils # (Auto) 0.5 x10^3/uL (0.0-0.7) 0.5 x10^3/uL (0.0-0.7) Basophils # (Auto) 0.1 x10^3/uL (0.0-0.2) 0.1 x10^3/uL (0.0-0.2) Sodium Level 138 mmol/L (136-145) 139 mmol/L (136-145) Potassium Level 6.3 mmol/L (3.5-5.1) 4.5 mmol/L (3.5-5.1) Chloride Level 105 mmol/L (98-107) 104 mmol/L (98-107) Carbon Dioxide Level 22 mmol/L (21-32) 25 mmol/L (21-32) Anion Gap 11 (6-14) 10 (6-14) Blood Urea Nitrogen 31 mg/dL (8-26) 28 mg/dL (8-26) Creatinine 1.2 mg/dL (0.7-1.3) 1.2 mg/dL (0.7-1.3) Estimated GFR (Cockcroft-Gault) 64.4 64.4 BUN/Creatinine Ratio 26 (6-20) 23 (6-20) Glucose Level 94 mg/dL (70-99) 94 mg/dL (70-99) Calcium Level 9.1 mg/dL (8.5-10.1) 9.0 mg/dL (8.5-10.1) Magnesium Level 2.1 mg/dL (1.8-2.4) Total Bilirubin 0.2 mg/dL (0.2-1.0) 0.3 mg/dL (0.2-1.0) Aspartate Amino Transf (AST/SGOT) 7 U/L (15-37) 8 U/L (15-37) Alanine Aminotransferase (ALT/SGPT) 24 U/L (16-63) 24 U/L (16-63) Alkaline Phosphatase 65 U/L (46-116) 65 U/L (46-116) Troponin I High Sensitivity < 4 ng/L (4-75) AJ-Gqu-Y-Type Natriuretic Peptide 22 pg/mL (0-124) Total Protein 7.2 g/dL (6.4-8.2) 7.1 g/dL (6.4-8.2) Albumin 3.9 g/dL (3.4-5.0) 3.7 g/dL (3.4-5.0) Albumin/Globulin Ratio 1.2 (1.0-1.7) 1.1 (1.0-1.7) Glucose (Fingerstick) 99 mg/dL (70-99) Laboratory Tests Test 01/04/22 13:35 01/04/22 20:20 01/05/22 06:30 White Blood Count 7.3 x10^3/uL (4.0-11.0) 7.7 x10^3/uL (4.0-11.0) Red Blood Count 4.04 x10^6/uL (4.30-5.70) 4.04 x10^6/uL (4.30-5.70) Hemoglobin 11.4 g/dL (13.0-17.5) 11.4 g/dL (13.0-17.5) Hematocrit 34.8 % (39.0-53.0) 35.2 % (39.0-53.0) Mean Corpuscular Volume 86 fL (79-100) 87 fL (79-100) Mean Corpuscular Hemoglobin 28 pg (25-35) 28 pg (25-35) Mean Corpuscular Hemoglobin Concent 33 g/dL (31-37) 32 g/dL (31-37) Red Cell Distribution Width 14.6 % (11.5-14.5) 14.3 % (11.5-14.5) Platelet Count 249 x10^3/uL (140-400) 234 x10^3/uL (140-400) Neutrophils (%) (Auto) 59 % (31-73) 59 % (31-73) Lymphocytes (%) (Auto) 25 % (24-48) 25 % (24-48) Monocytes (%) (Auto) 8 % (0-9) 10 % (0-9) Eosinophils (%) (Auto) 7 % (0-3) 6 % (0-3) Basophils (%) (Auto) 1 % (0-3) 1 % (0-3) Neutrophils # (Auto) 4.3 x10^3/uL (1.8-7.7) 4.5 x10^3/uL (1.8-7.7) Lymphocytes # (Auto) 1.8 x10^3/uL (1.0-4.8) 1.9 x10^3/uL (1.0-4.8) Monocytes # (Auto) 0.6 x10^3/uL (0.0-1.1) 0.8 x10^3/uL (0.0-1.1) Eosinophils # (Auto) 0.5 x10^3/uL (0.0-0.7) 0.5 x10^3/uL (0.0-0.7) Basophils # (Auto) 0.1 x10^3/uL (0.0-0.2) 0.1 x10^3/uL (0.0-0.2) Sodium Level 138 mmol/L (136-145) 139 mmol/L (136-145) Potassium Level 6.3 mmol/L (3.5-5.1) 4.5 mmol/L (3.5-5.1) Chloride Level 105 mmol/L (98-107) 104 mmol/L (98-107) Carbon Dioxide Level 22 mmol/L (21-32) 25 mmol/L (21-32) Anion Gap 11 (6-14) 10 (6-14) Blood Urea Nitrogen 31 mg/dL (8-26) 28 mg/dL (8-26) Creatinine 1.2 mg/dL (0.7-1.3) 1.2 mg/dL (0.7-1.3) Estimated GFR (Cockcroft-Gault) 64.4 64.4 BUN/Creatinine Ratio 26 (6-20) 23 (6-20) Glucose Level 94 mg/dL (70-99) 94 mg/dL (70-99) Calcium Level 9.1 mg/dL (8.5-10.1) 9.0 mg/dL (8.5-10.1) Magnesium Level 2.1 mg/dL (1.8-2.4) Total Bilirubin 0.2 mg/dL (0.2-1.0) 0.3 mg/dL (0.2-1.0) Aspartate Amino Transf (AST/SGOT) 7 U/L (15-37) 8 U/L (15-37) Alanine Aminotransferase (ALT/SGPT) 24 U/L (16-63) 24 U/L (16-63) Alkaline Phosphatase 65 U/L (46-116) 65 U/L (46-116) Troponin I High Sensitivity < 4 ng/L (4-75) DO-Gwr-W-Type Natriuretic Peptide 22 pg/mL (0-124) Total Protein 7.2 g/dL (6.4-8.2) 7.1 g/dL (6.4-8.2) Albumin 3.9 g/dL (3.4-5.0) 3.7 g/dL (3.4-5.0) Albumin/Globulin Ratio 1.2 (1.0-1.7) 1.1 (1.0-1.7) Glucose (Fingerstick) 99 mg/dL (70-99) Brief Hospital Course Mr Capellan is a 51 yo male with PMHx asthma, morbid obesity, anxiety with depression, chronic lower back pain, HLD who comes to ED at the behest of his primary care office for elevated potassium on labs. He takes clonazepam 1 mg. 4 times daily, Lyrica 150 mg every morning and 300 mg nightly, lisinopril 40 mg daily, atorvastatin 10 mg nightly, Spiriva, Symbicort, clonidine 0.2 mg twice daily, Zanaflex 4 mg as needed 3 times daily, BuSpar 30 mg 3 times daily, Zoloft 100 mg 3 times daily, Aldactone 100 mg daily, verapamil 480 mg daily, potassium 10 mEq daily, albuterol as needed, furosemide 40 mg daily, carvedilol 6.25 mg twice daily, Singulair 10 mg nightly. Apparently he was told to stop taking his potassium supplementation instead he stopped taking his furosemide at home. He goes to the [facility] clinic for primary care and does see a psychiatrist outpatient as well. Labs with WBC 7.3, Hb 11.4, platelets 249, NA 138, K6.3, BUN 31, CR 1.2, glucose 94, calcium 9.1, magnesium 2.1, LFTs are normal laboratory limits, high- sensitivity troponin is less than 4, albumin 3.9 EKG sinus rhythm rate of 65 bpm first-degree heart block OR interval 260, some peaking of T waves no T WI or ST elevation. QTc 373. Given bicarbonate and insulin dextrose Kayexalate and admitted for further care on telemetry monitoring 01/05: Overnight no telemetry events. Potassium improved 4.5. Creatinine stable 1.2. No chest pain or shortness of breath. He does note family history of chronic kidney disease and has never been seen by maint mechanic. He would like to have referral to one outpatient. I have advised to hold lisinopril spironolactone and potassium supplements and only to take furosemide sparingly until he is evaluated by nephrology. Problem list: Hyperkalemia - likely due to lisinopril, spironolactone and potassium supplementation. Will hold meds. Given sodium bicarb, insulin, D50 Morbid obesity - counseled on weight loss, lifestyle modification Hyperlipidemia - cont statin Hypertension - on coreg, lisinopril, aldactone, will cont coreg, hold others Anxiety, depression, panic disorder - cont home meds Right hip pain -we will give topical Voltaren. back off on ibuprofen for now Chronic lower back pain -currently taking ibuprofen 3 times daily was previously taking tramadol which was stopped over a year ago. He is not interested in physical therapy or aquatic therapy discussed in depth Asthma - cont nebs prn, singulair Lower extremity edema - likely venous insufficiency with morbid obesity. multiple BNP levels rule out CHF as diagnosis Likely CKDI - will have outpatient referral Greater than 30 minutes spent on d/c home Discharge Information Condition at Discharge: Improved Follow Up: Weeks Disposition/Orders: D/C to Home Scheduled Albuterol Sulfate (Albuterol Sulfate Conc Neb Soln) 2.5 Mg/0.5 Ml Vial.neb, 1 AL NEB Q6HRS for ., #120 Ref 5 (Reported) Entered as Reported by: BRENNAN KENNEDY on 01/04/221900 Last Taken: Unknown Dose on Unknown Date & Time Last Action: Converted on 01/04/221916 by ALESHA JIMENEZ MD Aspirin (Aspirin) 325 Mg Tablet, 1 TAB PO DAILY for ., #30 Ref 5 (Reported) Entered as Reported by: BRENNAN KENNEDY on 01/04/221900 Last Taken: Unknown Dose on Unknown Date & Time Last Action: Continued on 01/04/221916 by ALESHA JIMENEZ MD Atorvastatin Calcium (Atorvastatin Calcium) 10 Mg Tablet, 1 TAB PO DAILY for high cholestrol , #30 Ref 5 (Reported) Entered as Reported by: BRENNAN KENNEDY on 01/04/221900 Last Taken: Unknown Dose on Unknown Date & Time Last Action: Continued on 01/04/221916 by ALESHA JIMENEZ MD Budesonide/Formoterol Fumarate (Symbicort 160-4.5 Mcg Inhaler) 10.2 Gm Hfa.aer.ad, 2 PUFF IH BID for ., #10.6 Ref 3 (Reported) Entered as Reported by: BRENNAN KENNEDY on 01/04/221900 Last Taken: Unknown Dose on Unknown Date & Time Last Action: Converted on 01/04/221916 by ALESHA JIMENEZ MD Buspirone Hcl (Buspirone Hcl) 30 Mg Tablet, 1 TAB PO BID for mood, #60 (Reported ) Entered as Reported by: BRENNAN KENNEDY on 01/04/221900 Last Taken: Unknown Dose on Unknown Date & Time Last Action: Converted on 01/04/221916 by ALESHA JIMENEZ MD Carvedilol (Carvedilol ) 6.25 Mg Tablet, 6.25 MG PO BIDWMEALS for CARDIAC, (Reported) Entered as Reported by: BRENNAN KENNEDY on 01/04/221900 Last Taken: Unknown Dose on Unknown Date & Time Last Action: Continued on 01/04/221916 by ALESHA JIMENEZ MD Clonazepam (Clonazepam) 1 Mg Tablet, 2 MG PO BID for FOR ANXIETY, (Reported) Entered as Reported by: BRENNAN KENNEDY on 01/04/221900 Last Taken: Unknown Dose on Unknown Date & Time Last Action: Converted on 01/04/221916 by ALESHA JIMENEZ MD Clonazepam (Clonazepam) 1 Mg Tablet, 1 MG PO NOON for FOR ANXIETY, (Reported) Entered as Reported by: BRENNAN KENNEDY on 01/04/221900 Last Taken: Unknown Dose on Unknown Date & Time Last Action: Converted on 01/04/221916 by ALESHA JIMENEZ MD Clonidine Hcl (Clonidine Hcl) 0.2 Mg Tablet, 1 TAB PO BID for ., #60 Ref 5 (Rep orted) Entered as Reported by: BRENNAN KENNEDY on 01/04/221900 Last Taken: Unknown Dose on Unknown Date & Time Last Action: Continued on 01/04/221916 by ALESHA JIMENEZ MD Famotidine (Famotidine) 40 Mg Tablet, 40 MG PO DAILY, (Reported) Entered as Reported by: ANSELMO SMITH on 01/21/182241 Last Action: Converted on 01/04/221916 by ALESHA JIMENEZ MD Furosemide (Lasix) 40 Mg Tablet, 1 TAB PO DAILY for . for 30 Days, #30 Ref 0 (Re ported) Entered as Reported by: BRENNAN KENNEDY on 01/04/221900 Last Taken: Unknown Dose on Unknown Date & Time Last Action: Continued on 01/04/221916 by ALESHA JIMENEZ MD Ipratropium/Albuterol Sulfate (Combivent Respimat Inhal) 4 Gm Aer.w.adap, 2 INH IH QID for for resp ER, (Reported) Entered as Reported by: BRENNAN KENNEDY on 01/04/221900 Last Taken: Unknown Dose on Unknown Date & Time Last Action: Reviewed on 01/04/221901 by BRENNAN KENNEDY Lisinopril (Lisinopril) 40 Mg Tablet, 1 TAB PO DAILY for HTN, #30 Ref 5 (Reported) Entered as Reported by: BRENNAN KENNEDY on 01/04/221900 Last Taken: Unknown Dose on Unknown Date & Time Last Action: HELD on 01/04/221915 by ALESHA JIMENEZ MD Montelukast Sodium (Montelukast Sodium Tablet ) 10 Mg Tablet, 10 MG PO HS for FOR ASTHMA, Ref 0 (Reported) Entered as Reported by: BRENNAN KENNEDY on 01/04/221900 Last Taken: Unknown Dose on Unknown Date & Time Last Action: Continued on 01/04/221916 by ALESHA JIMENEZ MD Potassium Chloride (Klor-Con 10) 10 Meq Tablet.er, 1 TAB PO DAILY for replacement for 30 Days, #30 Ref 0 (Reported) Entered as Reported by: BRENNAN KENNEDY on 01/04/221900 Last Taken: Unknown Dose on Unknown Date & Time Last Action: HELD on 01/04/221915 by ALESHA JIMENEZ MD Pregabalin (Lyrica) 150 Mg Capsule, 1 CAP PO DAILY for neuropathy, #60 Ref 5 (Reported) Entered as Reported by: BRENNAN KENNEDY on 01/04/221900 Last Taken: Unknown Dose on Unknown Date & Time Last Action: Converted on 01/04/221916 by ALESHA JIMENEZ MD Pregabalin (Lyrica) 150 Mg Capsule, 2 CAP PO QHS for neuropathy, #60 Ref 5 (Reported) Entered as Reported by: BRENNAN KENNEDY on 01/04/221900 Last Taken: Unknown Dose on Unknown Date & Time Last Action: Converted on 01/04/221916 by ALESHA JIMENEZ MD Sertraline Hcl (Zoloft) 100 Mg Tablet, 3 TAB PO DAILY for depression, #30 Ref 5 (Reported) Entered as Reported by: BRENNAN KENNEDY on 01/04/221900 Last Taken: Unknown Dose on Unknown Date & Time Last Action: Converted on 01/04/221916 by ALESHA JIMENEZ MD Spironolactone (Spironolactone) 100 Mg Tablet, 1 TAB PO DAILY for ., #30 Ref 11 (Reported) Entered as Reported by: BRENNAN KENNEDY on 01/04/221900 Last Taken: Unknown Dose on Unknown Date & Time Last Action: HELD on 01/04/221915 by ALESHA JIMENEZ MD Tiotropium [place] (Spiriva) 18 Mcg Cap.w.dev, 1 CAP IH DAILY for ., #30 Ref 3 (Reported) Entered as Reported by: BRENNAN KENNEDY on 01/04/221900 Last Taken: Unknown Dose on Unknown Date & Time Last Action: Converted on 01/04/221916 by ALESHA JIMENEZ MD Tizanidine Hcl (Tizanidine Hcl) 4 Mg Tablet, 1 TAB PO TID for ., #60 (Reported) Entered as Reported by: BRENNAN KENNEDY on 01/04/221900 Last Taken: Unknown Dose on Unknown Date & Time Last Action: Continued on 01/04/221916 by ALESHA JIMENEZ MD Verapamil HCl (Verapamil Sr) 240 Mg Cap24h.pel, 160 MG PO TID for HTN, (Reported) Entered as Reported by: BRENNAN KENNEDY on 01/04/221900 Last Taken: Unknown Dose on Unknown Date & Time Last Action: Converted on 01/04/221916 by ALESHA JIMENEZ MD Scheduled PRN Albuterol Sulfate (Proair Hfa Inhaler) 8.5 Gm Hfa.aer.ad, 2 PUFF IH PRN Q4-6HRS PRN for wheezing for 21 Days, #1 Ref 0 (Reported) Entered as Reported by: BRENNAN KENNEDY on 01/04/221900 Last Taken: Unknown Dose on Unknown Date & Time Last Action: Reviewed on 01/04/221901 by BRENNAN KENNEDY Diclofenac Sodium (Voltaren Arthritis Pain) 20 Gm Gel..gram., 20 GM TP PRN QID PRN for neuropathy/arthrisit, (Reported) Entered as Reported by: BRENANN KENNEDY on 01/04/221900 Last Taken: Unknown Dose on Unknown Date & Time Last Action: Reviewed on 01/04/221901 by BRENNAN KENNEDY Discontinued Medications Albuterol Sulfate (Albuterol Sulfate Neb Soln) 1.25 Mg/3 Ml Vial.neb, 1.25 MG NEB Q4HRS PRN for SHORTNESS OF BREATH, Ref 0 (Reported) Entered as Reported by: DANA LANCE on 01/08/16 1410 Last Action: Discontinued on 01/04/221841 by BRENNAN KENNEDY Aspirin (Aspirin) 325 Mg Tablet, 1 TAB PO DAILY, #30 Ref 5 (Reported) Entered as Reported by: ANSELMO SMITH on 01/21/18 2242 Last Action: Discontinued on 01/04/221841 by BRENNAN KENNEDY Atorvastatin Calcium (Atorvastatin Calcium) 10 Mg Tablet, 1 TAB PO DAILY, #30 Ref 5 (Reported) Entered as Reported by: ANSELMO SMITH on 01/21/182241 Last Action: Discontinued on 01/04/221841 by BRENNAN KENNEDY Budesonide/Formoterol Fumarate (Symbicort 160-4.5 Mcg Inhaler) 10.2 Gm Hfa.aer.ad, 2 PUFF IH BID, #10.6 Ref 3 (Reported) Entered as Reported by: ANSELMO SMITH on 01/21/182241 Last Action: Discontinued on 01/04/221841 by BRENNAN KENNEDY Buspirone Hcl (Buspirone Hcl) 30 Mg Tablet, 1 TAB PO TID, #60 (Reported) Entered as Reported by: DANA LANCE on 01/08/161409 Last Action: Discontinued on 01/04/221841 by BRENNAN KENNEDY Carvedilol (Carvedilol ) 6.25 Mg Tablet, 1 TAB PO BID, #180 Ref 1 (Reported) Entered as Reported by: ANSELMO SMITH on 01/21/182241 Last Action: Discontinued on 01/04/221841 by BRENNAN KENNEDY Cetirizine Hcl (Cetirizine Hcl) 10 Mg Tablet, 10 MG PO DAILY for allergies, (Reported) Entered as Reported by: HERO RIVERA on 05/28/192329 Last Action: Discontinued on 01/04/221841 by BRENNAN KENNEDY Clonazepam (Clonazepam) 1 Mg Tablet, 1 MG PO QID for anxiety, #60 Ref 1 (Reported) Entered as Reported by: HERO RIVERA on 05/28/192329 Last Action: Discontinued on 01/04/221841 by BRENNAN KENNEDY Clonazepam (Clonazepam) 1 Mg Tablet, 1 MG PO NOON for anxiety, (Reported) Entered as Reported by: HERO RIVERA on 05/28/192329 Last Action: Discontinued on 01/04/221841 by RBENNAN KENNEDY Clonidine Hcl (Clonidine Hcl) 0.2 Mg Tablet, 1 TAB PO BID, #60 Ref 5 (Reported) Entered as Reported by: DANA LACNE on 01/08/16 1410 Last Action: Discontinued on 01/04/221841 by BRENNAN KENNEDY Cyclobenzaprine Hcl (Cyclobenzaprine Hcl) 10 Mg Tablet, 1 TAB PO QHS for muscle spasms, #30 (Reported) Entered as Reported by: HERO RIVERA on 05/28/192329 Last Action: Discontinued on 01/04/221841 by BRENNAN KENNEDY Diclofenac Sodium (Voltaren) 100 Gm Gel..gram., 1 GM TP QID, #100 Ref 2 (Reported) Entered as Reported by: ANSELMO SMITH on 01/21/182241 Last Action: Discontinued on 01/04/221841 by BRENNAN KENNEDY Gabapentin (Gabapentin) 800 Mg Tablet, 800 MG PO TID, (Reported) Entered as Reported by: ANSELMO MSITH on 01/21/182241 Last Action: Discontinued on 01/04/221841 by BRENNAN KENNEDY Ibuprofen (Ibuprofen) 800 Mg Tablet, 800 MG PO TID PRN for INFLAMMATION, (Reported) Entered as Reported by: ANSELMO SMITH on 01/21/182241 Last Action: Discontinued on 01/04/221841 by BRENNAN KENNEDY Lisinopril (Lisinopril) 20 Mg Tablet, 2 TAB PO DAILY, #30 Ref 5 (Reported) Entered as Reported by: DANA LANCE on 01/08/16 1410 Last Action: Discontinued on 01/04/221841 by BRENNAN KENNEDY Sertraline Hcl (Zoloft) 100 Mg Tablet, 3 TAB PO DAILY for depression, #30 Ref 5 (Reported) Entered as Reported by: HERO RIVERA on 05/28/192329 Last Action: Discontinued on 01/04/221841 by BRENNAN KENNEDY Spironolactone (Spironolactone) 50 Mg Tablet, 2 TAB PO DAILY, #30 Ref 5 (Reported) Entered as Reported by: DANA LANCE on 01/08/16 1410 Last Action: Discontinued on 01/04/221841 by BRENNAN KENNEDY Tiotropium [place] (Spiriva) 18 Mcg Cap.w.dev, 1 CAP IH DAILY, #30 Ref 3 (Reported) Entered as Reported by: ANSELMO SMITH on 01/21/182241 Last Action: Discontinued on 01/04/221841 by BRENNAN KENNEDY Tizanidine Hcl (Tizanidine Hcl) 4 Mg Tablet, 1 TAB PO TID for muscle spasms, #90 (Reported) Entered as Reported by: HERO RIVERA on 05/28/192329 Last Action: Discontinued on 01/04/221841 by BRENNAN KENNEDY Tramadol Hcl (Tramadol Hcl) 50 Mg Tablet, 100 MG PO TID PRN for PAIN, Ref 0 (Reported) Entered as Reported by: HERO RIVERA on 05/28/192329 Last Action: Discontinued on 01/04/221841 by BRNENAN KENNEDY [verapamil] , 120 MG PO TID, (Reported) Entered as Reported by: ANSELMO SMITH on 01/21/182242 Last Action: Discontinued on 01/04/221841 by BRENNAN KENNEDY Justicifation of Admission Dx: Justifications for Admission: Justification of Admission Dx: Yes CHF: Sev. Electrolyte Abnormal ALESHA JIMENEZ MD Jan 05, 2022 12:00
--- NOTE | 2022-01-05 12:37 | NUR ---
SS following for discharge planning. SS reviewed pt chart and discussed with pt RN. Pt is from home and is currently on room air. Discharge order on the chart for home with self care.
--- NOTE | 2022-01-05 13:45 | NUR ---
PATIENT DISCHARGED HOME. DISCHARGE INSTRUCTIONS VERBALIZED TO PATIENT, PATIENT WAS GIVEN THE OPPORTUNITY TO ASK QUESTIONS. ALL QUESTIONS ANSWERED TO PATIENT SATISFACTION. PATIENT VERBALIZED UNDERSTANDING OF ALL INSTRUCTIONS. IV REMOVED. PATIENT TRANSPORTED VIA WHEELCHAIR, TRANSPORTATION PROVIDED BY PATIENTS FATHER. ALL PATIENT BELONGINGS WERE SENT WITH PATIENT. VSS. PATIENT NEMESIO AT DISCHARGE.
== END 2022-01-05 14:45 | disposition home or self-care (01) ==
LOC: ER 12:12 → 6 SOUTH 15:54
PROVIDERS: ADMIT Internal Medicine; ATTEND Internal Medicine
DX: E87.5 Hyperkalemia (principal); E66.01 Morbid (severe) obesity due to excess calories; I11.0 Hypertensive heart disease with heart failure; I50.9 Heart failure, unspecified; E78.5 Hyperlipidemia, unspecified; F41.9 Anxiety disorder, unspecified; M25.551 Pain in right hip; G89.29 Other chronic pain; M54.50 Low back pain, unspecified; J44.9 Chronic obstructive pulmonary disease, unspecified; I87.2 Venous insufficiency (chronic) (peripheral); I44.0 Atrioventricular block, first degree; K21.9 Gastro-esophageal reflux disease without esophagitis; M19.90 Unspecified osteoarthritis, unspecified site; F32.A Depression, unspecified; F41.0 Panic disorder [episodic paroxysmal anxiety]; E78.00 Pure hypercholesterolemia, unspecified; T46.4X5A Adverse effect of angiotensin-converting-enzyme inhibitors, initial encounter; F17.200 Nicotine dependence, unspecified, uncomplicated; Z79.899 Other long term (current) drug therapy; Z98.890 Other specified postprocedural states; Z68.43 Body mass index [BMI] 50.0-59.9, adult
CPT/HCPCS: 36415; 36600; 80053; 82962; 83735; 83880; 84484; 85025; 93005; 94640; 96361; 96372; 96374; 96375; 99284; G0378; J0610; J1644; J1815; J1940; J3490; J7060; J7613; J7626; G0379